=== PATIENT | female | born 1990 | race African-American/Black ===

== ENCOUNTER 2020-03-10 10:39 | Emergency (ER) | payer SELFPAY ==
[~2020-03-10] VITALS: Ht 162.6 cm; Wt 86.7 kg
[2020-03-10] MEDS ORDERED: IBUPROFEN 400 MG TAB PO ONE (11:15)
[2020-03-10] MEDS ORDERED: IBUPROFEN 400 MG TAB ONE (11:32)
[2020-03-10] MEDS ORDERED: ZITHROMAX250 MG PO (11:47)
[2020-03-10] MEDS ORDERED: DECADRON6 MG PO (11:50)
== END 2020-03-10 12:00 | disposition home or self-care (01) ==
LOC: FSED 11:19
DX: B34.9 Viral infection, unspecified (principal); J06.9 Acute upper respiratory infection, unspecified; R05 Cough
CPT/HCPCS: 83518; 87400; 99283

== ENCOUNTER 2020-03-25 10:30 | Emergency (ER) | payer SELFPAY ==
[~2020-03-25] VITALS: Ht 162.6 cm; Wt 86.8 kg
[~2020-03-25 10:30] MED LIST: DECADRON6 MG PO; ZITHROMAX250 MG PO
[2020-03-25] MEDS ORDERED: SODIUM CHLORIDE 0.9% 1000ML 1,000 ML IV STA (11:13)
[2020-03-25] MEDS ORDERED: KETOROLAC TROMETHAMINE 30 MG/ML VIAL IV STA (11:13)
[2020-03-25] MEDS ORDERED: SODIUM CHLORIDE FLUSH 10 ML SYR INJ PRN (11:15)
--- OUTSIDE RECORDS SUMMARY | 2020-03-25 11:41 | XMS REPORT | Clinical Summary ---
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 Name Role Phone Asked, No Pcp PCP Unavailable Allergies No Known Active Allergies Medications No known medications Active Problems Problem Noted Date 33 weeks gestation of 11/19/2017 Antepartum placental abruption 11/19/2017 distress affecting delivery 11/19/2017 11/17/2017 Surgical History Surgery Date Site/Laterality Comments OOPHORECTOMY SECTION OVARIAN CYST REMOVAL DELIVERY, 11/17/2017 Abdomen/Lower Procedure: DELIVERY, ; Surgeon: Collins Castaneda III, MD; Location: [facility] [place] [facility]; Service: Obstetrics; Laterality: Lower ; Family History Medical History Relation Name Comments Cancer Mother Relation Name Status Comments Mother Social History Date Tobacco Use Types Packs/Day Years Used Never Smoker Smokeless Tobacco: Never Used Drinks/Week oz/Week Comments Alcohol Use No Sex Assigned at Date Recorded Not on file Obstetrics History Term Pre Abrt (TAB) (SAB) (Ect) Mult Lvng Comments Grav Para 4 1 0 5 5 5 Date GA Total Labor Labor/2nd/3rd Weight Sex Delivery Anes PTL Brittny A1 A5 Name Clin Outcome 11/19/2007 F CS-LTranv Living Term Complications: None Delivery Location: Other 05/22/2009 F N Living Term Complications: None 08/15/2012 F CS-LTranv Living Term Complications: None 08/19/2014 F CS-LTranv Living Term Complications: None 11/17/2017 33w2d 0h 02m 0h 02m 4 lb 9.4 oz M CS-LTranv Spinal N Apurva ng 2 4 MAIKOL ARIZA Roderick Peter III, MD Complications: Placental abruption Delivery Location: [facility] ( [facility] [place] [facility] Last Filed Vital Signs Not on file Plan of Treatment Health Maintenance Due Date Last Done Comments CERVICAL CANCER SCREENING 2010 INFLUENZA VACCINE 12/08/2019 04/09/2014 Results Not on fileafter 03/25/2019 Advance Directives For more information, please contact: [phone] Patient [employer] Explanation Type Date Recorded Advance Directives, Living Will and Medical Power of [place] Advance Directives, 01/29/2019 6:10 PM Living Will and Medical Power of [place] Date Inactivated Comments Code Status Date Activated 11/19/2017 7:13 PM Full Code 11/16/2017 10:39 PM Code Status decision reached by: Patient
--- OUTSIDE RECORDS SUMMARY | 2020-03-25 11:42 | XMS REPORT | Continuity of Care Document ---
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 Name Role Phone [facility] Information Exchange Unavailable Un available Problems Problem Status Onset Date Classification Date Reported Comments Source Other specified disorders of teeth and s upporting structures 08/04/2016 08/07/2016 [facility] Dental caries 08/04/2016 08/07/2016 [facility] HEAD AND TOOTH PAIN Active 08/04/2016 [facility] Discharge Diagnosis: Abdominal pain 12/23/2015 12/26/2015 [facility] ABD PAIN Active 12/22/2015 [facility] Discharge Diagnosis: Bacterial vaginosis 05/14/2015 05/17/2015 [facility] ABDOMINAL PAIN Active 05/14/2015 [facility] Discharge Diagnosis: Abdominal pain of unknown etiolog y 11/20/2014 11/23/2014 [facility] Discharge Diagnosis: Ovarian cyst 11/20/2014 11/23/2014 [facility] Discharge Diagnosis: Menorrhagia 11/17/2014 11/21/2014 [facility] Discharge Diagnosis: Dyspnea 05/24/2014 05/26/2014 [facility] SOB Active 0 05/24/2014 [facility] Discharge Diagnosis: Nausea and vomiting in 01/16/2014 01/19/2014 [facility] Discharge Diagnosis: 01/16/2014 01/19/2014 [facility] VOMITTING Active 01/16/2014 [facility] HEADACHE Active 11/21/2013 [facility] FEVER Active 09/20/2011 [facility] VOMITTING,ABDOMINAL PAIN Active 09/12/2011 [facility] Contraception (finding) Active Problem 08/26/2019 [facility] Cyst of ovary (disorder) Resol beau Problem [facility] Active Problem 11/28/2018 [facility] Pain (finding) Active Problem 11/28/2018 [facility] Nausea Active Problem 09/16/2011 [facility] Pain Active Problem 09/16/2011 [facility] Medications Medication Details Route Status Patient Instructions Ordering Provider Order Date Source Depo-Provera 150 mg, Route: IM , Drug form: SUSP, ONCE, Dosing Weight 73.636, kg, Start date: 07/11/18 10:46:00 HEEL CUTTER, Stop date: 07/11/18 10:46:00 HEEL CUTTER Inactive 07/11/2018 [facility] Acetaminophen 300 MG / Codeine Phosphate 30 MG Oral Tablet [Tylenol with Codeine #3] 1 - 2 tab, PO, Q6H, PRN Pain, X 4 day, # 32 tab, 0 Refill(s) Active 08/04/2016 [facility] Penicillin V Potassium 500 MG Oral Tablet 500 mg = 1 tab, PO, Q6H, X 10 day, # 40 tab, 0 Refill(s) Active 08/04/2016 [facility] lactulose 10 g oral powder = 1 Pack, PO, BID, X 5 day, # 10 gm, 0 Refill(s) Active 12/23/2015 [facility] Lactulose 30 ml, Route: PO, Dr ug Form: SYRP, Dosing Weight 75, kg, ONCE, STAT, Start date: 12/23/15 3:12:00 CDT, Stop date: 12/23/15 3:12:00 CDT Inactive 12/23/2015 [facility] Ondansetron 4 mg, Route: IVP, ONCE, Dosing Weight 75, kg, Priority: STAT, Start date: 12/23/15 0:44:00 CDT, Stop date: 12/23/15 0:44:00 CDT Inactive 12/23/2015 [facility] Saline Flush 0.9% Notes: (Same as: BD Posiflush) Inactive 12/23/2015 [facility] GI cocktail 30 mL, Route: PO, Dosing Weight 75, kg, ONCE, STAT, Start date: 12/23/15 0:44:00 CDT, Stop date: 12/23/15 0:44:00 CDT Inactive 12/23/2015 [facility] Metronidazole 500 MG Oral Tablet [Flagyl] 500 mg = 1 tab, PO, Q8H, X 14 day, # 42 tab, 0 Refill(s) Active 05/14/2015 [facility] Ketorolac 30 mg, Route: IVP, D rug form: INJ, ONCE, Dosing Weight 72.273, kg, Priority: STAT, Start date: 05/14/15 8:32:00, Stop date: 05/14/15 8:32:00 Inactiv e 05/14/2015 [facility] Sodium Chloride 0.154 MEQ/ML Injectable Solution 1,000 mL, 1,000 ml/hr, Infuse Over: 1 hr, Route: IV, ONCE, Priority: STAT, Dosing Weight 72.273 kg, Start date: 05/14/15 8:30:00, Duration: 1 doses or times, Stop date: 05/14/15 8:30:00 Inactive 05/14/2015 [facility] Ketorolac Tromethamine 10 MG Oral Tablet 10 mg = 1 tab, PO, TID, PRN Pain, X 5 day, # 15 tab, 0 Refill(s) Active 11/20/2014 [facility] Acetaminophen Notes: Max aceta minophen 4000 mg/day (4 gm/day). (Same as: Tylenol Extra Strength) Inactive 11/20/2014 [facility] Acetaminophen Notes: Do not ex ceed 4 gm/day. (Same as: Tylenol) Inactive 11/18/2014 [facility] Saline Flush 0.9% Notes: (Same as: BD Posiflush) No Longer Active 11/18/2014 [facility] PreNata oral tablet, chewable 0 Refill(s) Active 05/24/2014 [facility] Saline Flush 0.9% Notes: Same as: BD Posiflush Sterile Inactive 05/24/2014 [facility] Ondansetron 4 MG Disintegrating Tablet [Zofran] Special Instructions: Dissolve tab under tongue Active 01/16/2014 [facility] Zofran Notes: (Same as: Zofran) Inactive 01/16/2014 [facility] Sodium Chloride 0.154 MEQ/ML Injectable Solution 1,000 mL, 1,000 ml/hr, Infuse Over: 1 hr, Route: IV, 1,000, Drug form: INJ, ONCE, Priority: STAT, Dosing Weight 75 kg, Start date: 01/16/14 16:30:00, Duration: 1 doses or times, Stop date: 01/16/14 16:30:00 Inactive 01/16/2014 [facility] ferrous sulfate 325 mg oral enteric coated tablet 325 mg, 1 tab, PO, Daily, 30 tab, Substitution Allowed, ECTAB PO Active [place] 09/14/2011 [facility] ibuprofen 600 mg oral tablet 6 00 mg, 1 tab, PO, QID, PRN, 30 tab, Pain, Substitution Allowed, TAB PO Active [facility] 09/14/2011 [facility] nter Gilmer 5/325 oral tablet 1 tab, PO, Q6H, PRN, 20 tab, Pain, Substitution Allowed, Maintenance, TAB PO Active [facility] 09/14/2011 [facility] docusate sodium 100 mg oral capsule 100 mg, 1 cap, PO, BID, PRN, 30 cap, Constipation, Substitution Allowed, CAP PO Active [place] 09/14/2011 [facility] Saline Flush 0.9% 5 ml, Route: IVP, Drug Form: INJ, Q12H, Start date: 09/13/11 21:00:00, Duration: 30 day, Stop date: 10/13/11 9:00:00 IVP No Longer Active [facility] 09/14/2011 [facility] Colace 100 mg oral capsule 100 mg, 1 cap, Route: PO, BID, Start date: 09/13/11 17:00:00, Duration: 30 day, Stop date: 10/13/11 9:00:00 PO No Longer Active [facility] 09/13/2011 [facility] ibuprofen 600 mg, 1 tab, Route : PO, Drug form: TAB, QID, PRN Pain, Start date: 09/13/11 15:34:00, Duration: 30 day, Stop date: 10/13/11 15:33:00 PO No Longer Active [place] 09/13/2011 [facility] Phenergan 25 mg, 1 tab, Route: PO, Drug form: TAB, Q6H, PRN Nausea & Vomiting, Start date: 09/13/11 11:57:00, Duration: 30 day, Stop date: 10/13/11 11:56:00 PO No Longer Active [facility] 09/13/2011 [facility] Zofran 4 mg, 1 tab, Route: PO, Drug form: TAB, Q8H, PRN Nausea, Start date: 09/13/11 11:57:00, Duration: 30 day, Stop date: 10/13/11 11:56:00 PO No Longer Active [facility] 09/13/2011 [facility] Saline Flush 0.9% 5 ml, Route: IVP, Drug Form: INJ, PRN, PRN Line Flush, Start date: 09/13/11 11:56:00, Duration: 30 day, Stop date: 10/13/11 11:55:00 IVP No Longer Active [facility] 09/13/2011 [facility] Mylicon 160 mg, Route: PO, Raphael g form: CHEWTAB, Q6H, PRN Gas, Start date: 09/13/11 11:54:00, Duration: 30 day, Stop date: 10/13/11 11:53:00 PO No Longer Active [facility] 09/13/2011 [facility] Gilmer 5/325 oral tablet 2 tab, Route: PO, Drug Form: TAB, Q6H, PRN Pain, Start date: 09/13/11 11:54:00, Duration: 30 day, Stop date: 10/13/11 11:53:00 PO No Longer Active [facility] 09/13/2011 [facility] Motrin 300 mg, 1.5 tab, Route: PO, Drug form: TAB, Q6H, PRN Pain, Start date: 09/13/11 11:53:00, Duration: 30 day, Stop date: 10/13/11 11:52:00 PO No Longer Active Berenice 09/13/2011 [facility] Mylicon 160 mg, 2 tab, Route: PO, Drug form: CHEWTAB, Q6H, PRN Gas, Start date: 09/13/11 6:48:00, Duration: 30 day, Stop date: 10/13/11 6:47:00 PO No Longer Active [facility] 09/13/2011 [facility] morphine 1 mg/ml MEDICAL ADMINISTRATIVE SPECIALIST (30 mg/30 mL) INJ Syringe 30 mg 30 mg, 30 mL, Route: IV, MEDICAL ADMINISTRATIVE SPECIALIST Dose: 1 mg, MEDICAL ADMINISTRATIVE SPECIALIST Lockout: 10 minutes, Continuous Basal Rate: 0.5 mg, 4 Hour Limit (In MG): 32, Drug Form: INJ, Continuous, Start date: 09/12/11 20:30:00, Duration: 30 day, Stop date: 10/12/11 20:29:00 IV No Longer Active [facility] 09/13/2011 [facility] naloxone 0.4 mg, 1 mL, Route: IV, Drug form: INJ, PRN, PRN Narcotic Reversal, Start date: 09/12/11 20:17:00, Duration: 30 day, Stop date: 10/12/11 20:16:00 IV No Longer Active [facility] 09/13/2011 [facility] nt ondansetron 4 mg, 2 mL, Route: IVP, Drug form: INJ, Q6H, PRN Nausea & Vomiting, Start date: 09/12/11 19:42:00, Duration: 30 day, Stop date: 10/12/11 19:41:00 IVP No Longer Active [facility] 09/13/2011 [facility] zolpidem 5 mg, 1 tab, Route: P O, Drug form: TAB, Bedtime, PRN Insomnia, Start date: 09/12/11 19:42:00, Duration: 30 day, Stop date: 10/12/11 19:41:00 PO No Longer Active [place] 09/13/2011 [facility] nt promethazine 12.5 mg, 0.5 mL, Route: IM, Drug form: INJ, Q4H, PRN Nausea & Vomiting, Start date: 09/12/11 19:42:00, Duration: 30 day, Stop date: 10/12/11 19:41:00 IM No Longer Active [facility] 09/13/2011 [facility] nter diphenhydrAMINE 25 mg, 1 cap, Route: PO, Drug form: CAP, Bedtime, PRN Insomnia, Start date: 09/12/11 19:42:00, Duration: 30 day, Stop date: 10/12/11 19:41:00 PO No Longer Active [place] 09/13/2011 [facility] nter docusate 100 mg, 1 cap, Route: PO, Drug form: CAP, BID, PRN Constipation, Start date: 09/12/11 19:42:00, Duration: 30 day, Stop date: 10/12/11 19:41:00 PO No Longer Active [place] 09/13/2011 [facility] nter Saline Flush 0.9% 5 ml, Route: IVP, Drug Form: INJ, PRN, PRN Line Flush, Start date: 09/12/11 19:42:00, Duration: 30 day, Stop date: 10/12/11 19:41:00 IVP No Longer Active [place] 09/13/2011 [facility] nter flumazenil 0.2 mg, 2 mL, Route : IVP, Drug form: INJ, PRN, PRN Benzodiazepine Reversal, Initial dose, Start date: 09/12/11 18:47:00, Duration: 30 day, Stop date: 10/12/11 18:46:00 IVP No Longer Active [facility] 09/12/2011 [facility] naloxone 0.04 mg, 0.1 mL, Rout e: IVP, Drug form: INJ, Q2MIN, PRN Narcotic Reversal, Start date: 09/12/11 18:47:00, Duration: 8 doses or times, Stop date: Limited # of times IVP No Longer Active [facility] 09/12/2011 [facility] ondansetron 4 mg, 2 mL, Route: IVP, Drug form: INJ, ONCE, PRN Nausea & Vomiting, Start date: 09/12/11 18:47:00 IVP No Longer Active [facility] 09/12/2011 [facility] morphine Sulfate 2 mg, 0.5 mL, Route: IVP, Drug form: INJ, Q5Min, PRN Pain Score 4-6, Start date: 09/12/11 18:47:00, Duration: 8 doses or times, Stop date: Limited # of times IVP No Longer Active [facility] 09/12/2011 [facility] cefazolin 1 gm, Route: IVPB, D rug form: PDR/INJ, ONCALL, Start date: 09/12/11 16:00:00, Duration: 30 day, Stop date: 10/12/11 15:59:00 IVPB No Longer Active Berenice 10/2011 [facility] Dilaudid 1 mg, Route: IV, ONCE , Priority: STAT, Start date: 09/12/11 11:56:00, Stop date: 09/12/11 11:56:00 IV No Longer Active [place] 09/12/2011 [facility] Sodium Chloride 0.9% (Bolus) IV 1,000 mL 1,000 mL, Rate: 1,000 ml/hr, Infuse over: 1 hr, Route: IV, Total Volume: 1,000, Bolus Dose, Priority: STAT, Start date: 09/12/11 8:26:00, Duration: 1 doses or times, Stop date: 09/12/11 9:25:00 IV No Longer Active [place]ie 09/12/2011 [facility] nter morphine Sulfate 6 mg, Route: IVP, ONCE, Priority: STAT, Start date: 09/12/11 7:39:00, Stop date: 09/12/11 7:39:00 IVP No Longer Active [place]ie 09/12/2011 [facility] ondansetron 4 mg, Route: IVP, Drug form: INJ, ONCE, Priority: STAT, Start date: 09/12/11 7:11:00, Stop date: 09/12/11 7:11:00 IVP No [facility] morphine Sulfate 4 mg, Route: IVP, ONCE, Priority: STAT, Start date: 09/12/11 7:11:00, Stop date: 09/12/11 7:11:00 IVP No Longer Active [facility] 09/12/2011 [facility] Sodium Chloride 0.9% IV 1,000 mL 1,000 mL, Rate: 125 ml/hr, Infuse over: 8 hr, Route: IV, Dosing Weight 68.2 kg, Total Volume: 1,000, Start date: 09/12/11 7:10:00, Duration: 30 day, Stop date: 10/12/11 7:09:00 IV No Longer [facility] Allergies, Adverse Reactions, Alerts Substance Category Reaction Severity Reaction type Status Date Reported Comments Source No Known Medication Allergies Assertion Drug aller [facility] Immunizations No Data Provided for This Section Results Order Name Results Value Reference Range Date Interpretation Comments Source URINE AND STOOL UA Nitrite Negative (12/23/15 1:25 AM) Negative 12/23/2015 [facility] URINE AND STOOL UA Leuk Est Negative (12/23/15 1:25 AM) Negative 12/23/2015 [facility] URINE AND STOOL UA Sq Epi Few /LPF Few /LPF 12/23/2015 [facility] URINE AND STOOL UA Blood Trace *ABN* (12/23/15 1:25 AM) Negative 12/23/2015 [facility] URINE AND STOOL UA Urobilinogen 0.2 0.1 - 1.0 12/23/2015 [facility] URINE AND STOOL UA Mucus Few /LPF None Seen /LPF 12/23/2015 [place] URINE AND STOOL UA WBC 0-2 /HPF None Seen /HPF 12/23/2015 [place] [facility] URINE AND STOOL UA RBC 3-5 /HPF 0 - 2 12/23/2015 [place] [facility] URINE AND STOOL UA Bacteria Few /HPF None Seen /HPF 12/23/2015 [place] [facility] URINE AND STOOL UA pH 6.0 5.0 - 8.0 12/23/2015 [place] [facility] URINE AND STOOL UA Protein Negative (12/23/15 1:25 AM) Negative 12/23/2015 [place] URINE AND STOOL UA Glucose Negative (12/23/15 1:25 AM) Negative 12/23/2015 [facility] URINE AND STOOL UA Ketones Negative *NA* (12/23/15 1:25 AM) Negative 12/23/2015 [facility] URINE AND STOOL UA Bili Negative *NA* (12/23/15 1:25 AM) Negative 12/23/2015 [facility] URINE AND STOOL UA Turbidity Clear (12/23/15 1:25 AM) Clear 12/23/2015 [facility] URINE AND STOOL UA Color Yellow *NA* (12/23/15 1:25 AM) Yellow 12/23/2015 [facility] URINE AND STOOL UA Spec Grav 1.025 <=1.030 12/23/2015 [facility] URINE CHEM U Preg Negat hussain (12/23/15 1:25 AM) Negative 12/23/2015 [facility] CHEM PANEL Lipase Lvl 199 73 - 393 12/23/2015 [facility] CHEM PANEL A/G Ratio 0.9 0.7 - 1.6 12/23/2015 [facility] CHEM PANEL Globulin 4.3 2.7 - 4.2 12/23/2015 [facility] CHEM PANEL AGAP 10.9 10.0 - 20.0 12/23/2015 [facility] CHEM PANEL B/C Ratio 14 6 - 25 12/23/2015 [facility] CHEM PANEL eGFR 133 12/23/2015 Result Comment: The eGFR is calculated using the CKD-EPI formula. In most young, healthy individuals the eGFR will be >90 mL/min/1.73m2. The eGFR declines with age. An eGFR of 60-89 may be normal in some populations, particularly the elderly, for whom the CKD-EPI formula has not been extensively validated. Use of the eGFR is not recommended in the following populations:

Individuals with unstable creatinine concentrations, including patients and those with serious co-morbid conditions.

Patients with extremes in muscle mass or diet.

The data above are obtained from the National Kidney Disease Education Program (NKDEP) which additionally recommends that when the eGFR is used in patients with extremes of body mass index for purposes of drug dosing, the eGFR should be multiplied by the estimated BMI. [facility] ALANINE AMINOTRANSFERASE 19 0 - 65 12/23/2015 [facility] Total Protein 8.0 6.4 - 8.4 12/23/2015 [facility] Potassium Lvl 3.9 3.5 - 5.1 12/23/2015 [facility] Chloride Lvl 109 95 - 109 12/23/2015 [place] CHEM PANEL CO2 26 24 - 32 12/23/2015 [facility] Creatinine Lvl 0.72 0.50 - 1.40 12/23/2015 [place] [facility] CHEM PANEL Sodium Lvl 142 135 - 145 12/23/2015 [place] [facility] CHEM PANEL BUN 10 7 - 22 12/23/2015 [facility] Alk Phos 74 39 - 136 12/23/2015 [facility] Glucose Lvl 90 70 - 99 12/23/2015 [facility] Albumin Lvl 3.7 3.5 - 5.0 12/23/2015 [facility] ASPARTATE TRANSAMINASE 15 0 - 37 12/23/2015 [facility] Calcium Lvl 8.9 8.5 - 10.5 12/23/2015 [facility] Bili Total 0.3 0.2 - 1.3 12/23/2015 [facility] HEMATOLOGY Eosinophils 1.5 0.0 - 4.0 12/23/2015 [facility] HEMATOLOGY Monocytes 10.1 2.0 - 12.0 12/23/2015 [facility] HEMATOLOGY Lymphocytes 38.1 20.0 - 40.0 12/23/2015 [facility] HEMATOLOGY Segs 49.7 45.0 - 75.0 12/23/2015 [facility] HEMATOLOGY Eosinophils # 0.1 0.0 - 0.5 12/23/2015 [facility] HEMATOLOGY Monocytes # 0.5 0.0 - 0.8 12/23/2015 [facility] HEMATOLOGY Lymphocytes # 1.7 1.0 - 5.5 12/23/2015 [facility] Segs-Bands # 2.2 1.5 - 8.1 12/23/2015 [facility] Basophils 0.6 0.0 - 1.0 12/23/2015 [facility] MPV 9.6 7.4 - 10.4 12/23/2015 [facility] Platelet 157 133 - 450 12/23/2015 [facility] RDW 13.6 11.5 - 14.5 12/23/2015 [facility] MCHC 32.6 32.0 - 36.0 12/23/2015 [facility] MCH 27.6 27.0 - 31.0 12/23/2015 [facility] MCV 84.7 80.0 - 98.0 12/23/2015 [facility] Hct 37.7 36.0 - 48.0 12/23/2015 [facility] Hgb 12.3 12.0 - 16.0 12/23/2015 [facility] RBC X 10x6 4.45 4.20 - 5.40 12/23/2015 [facility] WBC X 10x3 4.5 3.7 - 10.4 12/23/2015 [facility] MOLECULAR DIAGNOSTIC N gonorrhea by Amp Det (APTIMA) Negative *NA* (05/14/15 10:58 AM) Negative 05/14/2015 [facility] MOLECULAR DIAGNOSTIC Source APTIMA Endocervix *NA* (05/14/15 10:58 AM) 05/14/2015 [facility] ELECTROLYTES AGAP 9.5 10.0 - 20.0 05/14/2015 [facility] ELECTROLYTES eGFR 139 05/14/2015 Result Comment: The eGFR is calculated using the CKD-EPI formula. In most young, healthy individuals the eGFR will be >90 mL/min/1.73m2. The eGFR declines with age. An eGFR of 60-89 may be normal in some populations, particularly the elderly, for whom the CKD-EPI formula has not been extensively validated. Use of the eGFR is not recommended in the following populations:

Individuals with unstable creatinine concentrations, including patients and those with serious co-morbid conditions.

Patients with extremes in muscle mass or diet.

The data above are obtained from the National Kidney Disease Education Program (NKDEP) which additionally recommends that when the eGFR is used in patients with extremes of body mass index for purposes of drug dosing, the eGFR should be multiplied by the estimated BMI. [facility] ELECTROLYTES CO2 27 24 - 32 05/14/2015 [facility] ELECTROLYTES Calcium Lvl 9.0 8.5 - 10.5 05/14/2015 [facility] ELECTROLYTES BUN 9 7 - 22 05/14/2015 [facility] ELECTROLYTES Glucose Lvl 88 70 - 99 05/14/2015 [facility] ELECTROLYTES Creatinine Lvl 0.7 0 0.50 - 1.40 05/14/2015 [facility] ELECTROLYTES Potassium Lvl 4.5 3.5 - 5.1 05/14/2015 [facility] ELECTROLYTES Sodium Lvl 139 135 - 145 05/14/2015 [facility] ELECTROLYTES Chloride Lvl 107 95 - 109 05/14/2015 [facility] HEMATOLOGY MCH 27.8 27.0 - 31.0 05/14/2015 [facility] MCV 86.1 80.0 - 98.0 05/14/2015 [facility] Hct 38.3 36.0 - 48.0 05/14/2015 [facility] MCHC 32.3 32.0 - 36.0 05/14/2015 [facility] RDW 13.4 11.5 - 14.5 05/14/2015 [facility] MPV 9.4 7.4 - 10.4 05/14/2015 [facility] Platelet 145 133 - 450 05/14/2015 [facility] RBC 4.45 4.20 - 5.40 05/14/2015 [facility] WBC 4.6 3.7 - 10.4 05/14/2015 [facility] Hgb 12.4 12.0 - 16.0 05/14/2015 [facility] Monocytes # 0.4 0.0 - 0.8 05/14/2015 [facility] Eosinophils # 0.1 0.0 - 0.5 05/14/2015 [facility] Segs 56.0 45.0 - 75.0 05/14/2015 [facility] Lymphocytes 33.6 20.0 - 40.0 05/14/2015 [facility] Monocytes 8.6 2.0 - 12.0 05/14/2015 [facility] HEMATOLOGY Eosinophils 1.1 0.0 - 4.0 05/14/2015 [facility] HEMATOLOGY Segs-Bands # 2.6 1.5 - 8.1 05/14/2015 [facility] HEMATOLOGY Basophils 0.7 0.0 - 1.0 05/14/2015 [facility] HEMATOLOGY Lymphocytes # 1.6 1.0 - 5.5 05/14/2015 [facility] URINE AND STOOL UA Bacteria Occasional /HPF None Seen /HPF 05/14/2015 [facility] URINE AND STOOL UA RBC None Seen (05/14/15 8:45 AM) 0 - 2 05/14/2015 [facility] URINE AND STOOL UA WBC None Seen (05/14/15 8:45 AM) None Seen 05/14/2015 [facility] URINE AND STOOL UA Sq Epi Few /LPF Few /LPF 05/14/2015 [facility] URINE AND STOOL UA Leuk Est Negative (05/14/15 8:45 AM) Negative 05/14/2015 [facility] URINE AND STOOL UA Color Yellow *NA* (05/14/15 8:45 AM) Yellow 05/14/2015 [facility] URINE AND STOOL UA Turbidity Clear (05/14/15 8:45 AM) Clear 05/14/2015 [facility] URINE AND STOOL UA Bili Negative *NA* (05/14/15 8:45 AM) Negative 05/14/2015 [facility] URINE AND STOOL UA Blood Negative (05/14/15 8:45 AM) Negative 05/14/2015 [facility] URINE AND STOOL UA Spec Grav 1.020 <=1.030 05/14/2015 [facility] URINE AND STOOL UA Nitrite Negative (05/14/15 8:45 AM) Negative 05/14/2015 [facility] URINE AND STOOL UA Urobilinogen 0.2 0.1 - 1.0 05/14/2015 [facility] URINE AND STOOL UA Protein Negative mg/dL Negative mg/dL 05/14/2015 [facility] URINE AND STOOL UA Glucose Negative mg/dL Negative mg/dL 05/14/2015 [facility] URINE AND STOOL UA pH 7.0 5.0 - 8.0 05/14/2015 [facility] URINE AND STOOL UA Ketones Negative mg/dL Negative mg/dL 05/14/2015 [facility] URINE CHEM U Preg Negat hussain (05/14/15 8:45 AM) Negative 05/14/2015 [facility] ELECTROLYTES AGAP 9.0 10.0 - 20.0 11/20/2014 [facility] ELECTROLYTES eGFR 129 11/20/2014 Result Comment: The eGFR is calculated using the CKD-EPI formula. In most young, healthy individuals the eGFR will be >90 mL/min/1.73m2. The eGFR declines with age. An eGFR of 60-89 may be normal in some populations, particularly the elderly, for whom the CKD-EPI formula has not been extensively validated. Use of the eGFR is not recommended in the following populations:

Individuals with unstable creatinine concentrations, including patients and those with serious co-morbid conditions.

Patients with extremes in muscle mass or diet.

The data above are obtained from the National Kidney Disease Education Program (NKDEP) which additionally recommends that when the eGFR is used in patients with extremes of body mass index for purposes of drug dosing, the eGFR should be multiplied by the estimated BMI. [facility] ELECTROLYTES CO2 26 24 - 32 11/20/2014 [facility] ELECTROLYTES Calcium Lvl 8.8 8.5 - 10.5 11/20/2014 [facility] ELECTROLYTES Potassium Lvl 4.0 3.5 - 5.1 11/20/2014 [facility] ELECTROLYTES Chloride Lvl 111 95 - 109 11/20/2014 [facility] ELECTROLYTES BUN 4 7 - 22 11/20/2014 [facility] ELECTROLYTES Creatinine Lvl 0.8 0.5 - 1.4 11/20/2014 [facility] ELECTROLYTES Sodium Lvl 142 135 - 145 11/20/2014 [facility] ELECTROLYTES Glucose Lvl 92 70 - 99 11/20/2014 [facility] HEMATOLOGY MPV 9.3 7.4 - 10.4 11/20/2014 [facility] HEMATOLOGY Platelet 137 133 - 450 11/20/2014 [facility] MCH 25.7 27.0 - 31.0 11/20/2014 [facility] HEMATOLOGY MCV 82.0 80.0 - 98.0 11/20/2014 [facility] MCHC 31.3 32.0 - 36.0 11/20/2014 [facility] HEMATOLOGY RDW 16.7 11.5 - 14.5 11/20/2014 [facility] WBC 4.0 3.7 - 10.4 11/20/2014 [facility] RBC 4.27 4.20 - 5.40 11/20/2014 [facility] HEMATOLOGY Hct 35.0 36.0 - 48.0 11/20/2014 [facility] HEMATOLOGY Hgb 11.0 12.0 - 16.0 11/20/2014 [facility] HEMATOLOGY Segs-Bands # 1.9 1.5 - 8.1 11/20/2014 [facility] HEMATOLOGY Lymphocytes # 1.7 1.0 - 5.5 11/20/2014 [facility] HEMATOLOGY Monocytes # 0.3 0.0 - 0.8 11/20/2014 [facility] HEMATOLOGY Eosinophils # 0.1 0.0 - 0.5 11/20/2014 [facility] HEMATOLOGY Basophils 0.6 0.0 - 1.0 11/20/2014 [facility] HEMATOLOGY Segs 47.0 45.0 - 75.0 11/20/2014 [facility] HEMATOLOGY Lymphocytes 42.5 20.0 - 40.0 11/20/2014 [facility] HEMATOLOGY Eosinophils 1.4 0.0 - 4.0 11/20/2014 [facility] HEMATOLOGY Monocytes 8.5 2.0 - 12.0 11/20/2014 [facility] URINE AND STOOL UA Mucus Few /LPF None Seen /LPF 11/20/2014 [facility] URINE AND STOOL UA Sq Epi Few /LPF Few /LPF 11/20/2014 [facility] URINE AND STOOL UA Bacteria Few /HPF None Seen /HPF 11/20/2014 [facility] URINE AND STOOL UA RBC 3-5 /HPF 0 - 2 11/20/2014 [facility] URINE AND STOOL UA WBC 0-2 /HPF None Seen /HPF 11/20/2014 [facility] URINE AND STOOL UA Leuk Est Negative (11/20/14 11:25 AM) Negative 11/20/2014 [facility] URINE AND STOOL UA Nitrite Negative (11/20/14 11:25 AM) Negative 11/20/2014 [facility] URINE AND STOOL UA Urobilinogen 0.2 0.1 - 1.0 11/20/2014 [facility] URINE AND STOOL UA Blood Large *ABN* (11/20/14 11:25 AM) Negative 11/20/2014 [facility] URINE AND STOOL UA Bili Negative *NA* (11/20/14 11:25 AM) Negative 11/20/2014 [facility] URINE AND STOOL UA Ketones Negative *NA* (11/20/14 11:25 AM) Negative 11/20/2014 [facility] URINE AND STOOL UA Color Yellow *NA* (11/20/14 11:25 AM) Yellow 11/20/2014 [facility] URINE AND STOOL UA Spec Grav 1.010 <=1.030 11/20/2014 [facility] URINE AND STOOL UA Turbidity Clear (11/20/14 11:25 AM) Clear 11/20/2014 [facility] URINE AND STOOL UA pH 8.5 5.0 - 8.0 11/20/2014 [facility] URINE AND STOOL UA Glucose Negative (11/20/14 11:25 AM) Negative 11/20/2014 [facility] URINE AND STOOL UA Protein 30 mg/dL Negative mg/dL 11/20/2014 [facility] URINE CHEM U Preg Negat hussain (11/20/14 11:25 AM) Negative 11/20/2014 [facility] MOLECULAR DIAGNOSTIC N gonorrhea by Amp Det (APTIMA) Negative *NA* (11/17/14 11:45 PM) Negative 11/18/2014 [facility] MOLECULAR DIAGNOSTIC Source APTIMA Endocervix *NA* (11/17/14 11:45 PM) 11/18/2014 [facility] MOLECULAR DIAGNOSTIC C trachomatis b y Amp Det (APTIMA) Negative *NA* (11/17/14 11:45 PM) Negative 11/18/2014 [facility] MOLECULAR DIAGNOSTIC Source APTIMA Endocervix *NA* (11/17/14 11:45 PM) 11/18/2014 [facility] Platelet 148 133 - 450 11/18/2014 [facility] MPV 8.7 7.4 - 10.4 11/18/2014 [facility] MCV 81.1 80.0 - 98.0 11/18/2014 [facility] Hct 34.6 36.0 - 48.0 11/18/2014 [facility] Hgb 11.1 12.0 - 16.0 11/18/2014 [facility] RBC 4.26 4.20 - 5.40 11/18/2014 [facility] RDW 17.2 11.5 - 14.5 11/18/2014 [facility] MCH 25.9 27.0 - 31.0 11/18/2014 [facility] MCHC 32.0 32.0 - 36.0 11/18/2014 [facility] WBC 6.4 3.7 - 10.4 11/18/2014 [facility] Eosinophils # 0.1 0.0 - 0.5 11/18/2014 [facility] Segs 47.9 45.0 - 75.0 11/18/2014 [facility] HEMATOLOGY Lymphocytes 42.4 20.0 - 40.0 11/18/2014 [facility] HEMATOLOGY Segs-Bands # 3.1 1.5 - 8.1 11/18/2014 [facility] HEMATOLOGY Lymphocytes # 2.7 1.0 - 5.5 11/18/2014 [facility] HEMATOLOGY Basophils 0.5 0.0 - 1.0 11/18/2014 [facility] HEMATOLOGY Monocytes # 0.5 0.0 - 0.8 11/18/2014 [facility] HEMATOLOGY Monocytes 8.3 2.0 - 12.0 11/18/2014 [facility] HEMATOLOGY Eosinophils 0.9 0.0 - 4.0 11/18/2014 [facility] URINE AND STOOL UA Protein 30 mg/dL Negative mg/dL 11/18/2014 [facility] URINE AND STOOL UA pH 6.0 5.0 - 8.0 11/18/2014 [facility] URINE AND STOOL UA Nitrite Negative (11/17/14 10:57 PM) Negative 11/18/2014 [facility] URINE AND STOOL UA Leuk Est Negative (11/17/14 10:57 PM) Negative 11/18/2014 [facility] URINE AND STOOL UA Urobilinogen 2.0 0.1 - 1.0 11/18/2014 [facility] URINE AND STOOL UA Blood Large *ABN* (11/17/14 10:57 PM) Negative 11/18/2014 [facility] URINE AND STOOL UA Bili Negative *NA* (11/17/14 10:57 PM) Negative 11/18/2014 [facility] URINE AND STOOL UA Ketones Trace *ABN* (11/17/14 10:57 PM) Negative 11/18/2014 [facility] URINE AND STOOL UA Glucose Negative (11/17/14 10:57 PM) Negative 11/18/2014 [facility] URINE AND STOOL UA Color Yellow *NA* (11/17/14 10:57 PM) Yellow 11/18/2014 [facility] URINE AND STOOL UA Spec Grav 1.020 <=1.030 11/18/2014 [facility] URINE AND STOOL UA Turbidity Slight Cloudy (11/17/14 10:57 PM) Clear 11/18/2014 [facility] URINE AND STOOL UA Sq Epi Few /LPF Few /LPF 11/18/2014 [facility] URINE AND STOOL UA WBC 3-5 /HPF None Seen /HPF 11/18/2014 [facility] URINE AND STOOL UA RBC >100 /HPF 0 - 2 11/18/2014 [facility] URINE AND STOOL UA Bacteria Few /HPF None Seen /HPF 11/18/2014 [facility] URINE CHEM U Preg Negat hussain (11/17/14 10:57 PM) Negative 11/18/2014 [facility] URINE AND STOOL UA Bacteria Few /HPF None Seen /HPF 05/24/2014 [facility] URINE AND STOOL UA RBC 0-2 /HPF 0 - 2 05/24/2014 [facility] URINE AND STOOL UA Mucus Few /LPF None Seen /LPF 05/24/2014 [facility] URINE AND STOOL UA Glucose Negative (05/24/14 8:49 AM) Negative 05/24/2014 [facility] URINE AND STOOL UA Ketones Negative *NA* (05/24/14 8:49 AM) Negative 05/24/2014 [facility] URINE AND STOOL UA Bili Negative *NA* (05/24/14 8:49 AM) Negative 05/24/2014 [facility] URINE AND STOOL UA Sq Epi Moderate /LPF Few /LPF 05/24/2014 [facility] URINE AND STOOL UA Leuk Est Small *ABN* (05/24/14 8:49 AM) Negative 05/24/2014 [facility] URINE AND STOOL UA Protein Negative (05/24/14 8:49 AM) Negative 05/24/2014 [facility] URINE AND STOOL UA pH 6.5 5.0 - 8.0 05/24/2014 [facility] URINE AND STOOL UA Blood Negative (05/24/14 8:49 AM) Negative 05/24/2014 [facility] URINE AND STOOL UA WBC 3-5 /HPF None Seen /HPF 05/24/2014 [facility] URINE AND STOOL UA Nitrite Negative (05/24/14 8:49 AM) Negative 05/24/2014 [facility] URINE AND STOOL UA Urobilinogen 2.0 0.1 - 1.0 05/24/2014 [facility] URINE AND STOOL UA Spec Grav 1.020 <=1.030 05/24/2014 [facility] URINE AND STOOL UA Color Yellow *NA* (05/24/14 8:49 AM) Yellow 05/24/2014 [facility] URINE AND STOOL UA Turbidity Clear (05/24/14 8:49 AM) Clear 05/24/2014 [facility] CARDIAC ENZYMES CK MB Index <1.4 0.0 - 2.5 05/24/2014 [facility] CARDIAC ENZYMES Troponin-I <0.02 0.00 - 0.40 05/24/2014 [facility] CARDIAC ENZYMES Total CK 36 12 - 191 05/24/2014 [facility] CARDIAC ENZYMES CK MB <0.5 0.5 - 3.6 05/24/2014 [facility] CHEM PANEL eGFR 153 05/24/2014 <sup>1</sup>Result Comment: The eGFR is calculated using the CKD-EPI formula. In most young, healthy individuals the eGFR will be >90 mL/min/1.73m2. The eGFR declines with age. An eGFR of 60-89 may be normal in some populations, particularly the elderly, for whom the CKD-EPI formula has not been extensively validated. Use of the eGFR is not recommended in the following populations:& lt;br/>
Individuals with unstable creatinine concentrations, including patients and those with serious co-morbid conditions.

Patients with extremes in muscle mass or diet.

The data above are obtained from the National Kidney Disease Education Program (NKDEP) which additionally recommends that when the eGFR is used in patients with extremes of body mass index for purposes of drug dosing, the eGFR should be multiplied by the estimated BMI. [facility] CHEM PANEL AGAP 12.3 10.0 - 20.0 05/24/2014 [facility] CHEM PANEL B/C Ratio 8 6 - 25 05/24/2014 [facility] CHEM PANEL Bili Total 0.4 0.2 - 1.3 05/24/2014 [facility] CHEM PANEL Total Protein 6.7 6.4 - 8.4 05/24/2014 [facility] CHEM PANEL AST 11 0 - 37 05/24/2014 [facility] CHEM PANEL Chloride Lvl 106 95 - 109 05/24/2014 [facility] CHEM PANEL Calcium Lvl 8.8 8.5 - 10.5 05/24/2014 [facility] CHEM PANEL CO2 22 24 - 32 05/24/2014 [facility] CHEM PANEL Potassium Lvl 3.3 3.5 - 5.1 05/24/2014 [facility] CHEM PANEL Creatinine Lvl 0.5 0.5 - 1.4 05/24/2014 [facility] CHEM PANEL Sodium Lvl 137 135 - 145 05/24/2014 [facility] CHEM PANEL Glucose Lvl 86 70 - 99 05/24/2014 <sup>2</sup>Interpretive Data: Adult ref erence range values reflect the clinical guidelines
of the [place] [employer]. [facility] CHEM PANEL BUN 4 7 - 22 05/24/2014 [facility] CHEM PANEL Globulin 4.1 2.0 - 4.0 05/24/2014 [facility] CHEM PANEL A/G Ratio 0.6 0.7 - 1.6 05/24/2014 [facility] CHEM PANEL Albumin Lvl 2.6 3.5 - 5.0 05/24/2014 [facility] CHEM PANEL Alk Phos 91 39 - 136 05/24/2014 [facility] CHEM PANEL ALT 11 0 - 65 05/24/2014 [facility] HEMATOLOGY Segs 64.7 45.0 - 75.0 05/24/2014 [facility] HEMATOLOGY Monocytes 12.6 2.0 - 12.0 05/24/2014 [facility] HEMATOLOGY Lymphocytes 22.1 20.0 - 40.0 05/24/2014 [facility] HEMATOLOGY Eosinophils 0.3 0.0 - 4.0 05/24/2014 [facility] HEMATOLOGY Lymphocytes # 1.2 1.0 - 5.5 05/24/2014 [facility] HEMATOLOGY Segs-Bands # 3.5 1.5 - 8.1 05/24/2014 [facility] HEMATOLOGY Basophils 0.3 0.0 - 1.0 05/24/2014 [facility] Monocytes # 0.7 0.0 - 0.8 05/24/2014 [facility] RBC 3.39 4.20 - 5.40 05/24/2014 [facility] Hgb 9.7 12.0 - 16.0 05/24/2014 [facility] WBC 5.3 3.7 - 10.4 05/24/2014 [facility] Platelet 129 133 - 450 05/24/2014 [facility] RDW 13.0 11.5 - 14.5 05/24/2014 [facility] MCH 28.6 27.0 - 31.0 05/24/2014 [facility] Hct 29.6 36.0 - 48.0 05/24/2014 [facility] MCHC 32.8 32.0 - 36.0 05/24/2014 [facility] HEMATOLOGY MCV 87.3 80.0 - 98.0 05/24/2014 [facility] MPV 10.0 7.4 - 10.4 05/24/2014 [facility] HEMATOLOGY D-Dimer 1.04 05/24/2014 <sup>3</sup>Interpretive Data: In DIC, quantitative D-Dimer is generally greater than
0.66 ug/mL FEU. Values of quantitative D-Dimer less than
0.40 ug/mL FEU have been reported to be associated with a low
probability of deep vein thrombosis/pulmonary embolism.
This test alone should not be used to rule out DVT/PE. [facility] CHEM PANEL eGFR 139 01/16/2014 <sup>1</sup>Result Comment: The eGFR is calculated using the CKD-EPI formula. In most young, healthy individuals the eGFR will be >90 mL/min/1.73m2. The eGFR declines with age. An eGFR of 60-89 may be normal in some populations, particularly the elderly, for whom the CKD-EPI formula has not been extensively validated. Use of the eGFR is not recommended in the following populations:& lt;br/>
Individuals with unstable creatinine concentrations, including patients and those with serious co-morbid conditions.

Patients with extremes in muscle mass or diet.

The data above are obtained from the National Kidney Disease Education Program (NKDEP) which additionally recommends that when the eGFR is used in patients with extremes of body mass index for purposes of drug dosing, the eGFR should be multiplied by the estimated BMI. [facility] CHEM PANEL Chloride Lvl 104 95 - 109 01/16/2014 [facility] CHEM PANEL Calcium Lvl 9.3 8.5 - 10.5 01/16/2014 [facility] CHEM PANEL CO2 24 24 - 32 01/16/2014 [facility] CHEM PANEL Potassium Lvl 3.9 3.5 - 5.1 01/16/2014 [facility] CHEM PANEL AST 4 0 - 37 01/16/2014 [facility] CHEM PANEL Total Protein 7.6 6.4 - 8.4 01/16/2014 [facility] CHEM PANEL Bili Total 0.2 0.2 - 1.3 01/16/2014 [facility] CHEM PANEL Creatinine Lvl 0.7 0.5 - 1.4 01/16/2014 [facility] CHEM PANEL BUN 7 7 - 22 01/16/2014 [facility] CHEM PANEL Alk Phos 59 39 - 136 01/16/2014 [facility] CHEM PANEL Albumin Lvl 3.5 3.5 - 5.0 01/16/2014 [facility] CHEM PANEL ALT 12 0 - 65 01/16/2014 [facility] CHEM PANEL Sodium Lvl 137 135 - 145 01/16/2014 [facility] CHEM PANEL Glucose Lvl 92 70 - 99 01/16/2014 <sup>2</sup>Interpretive Data: Adult ref erence range values reflect the clinical guidelines
of the [place] [employer]. [facility] CHEM PANEL AGAP 12.9 10.0 - 20.0 01/16/2014 [facility] CHEM PANEL B/C Ratio 10 6 - 25 01/16/2014 [facility] CHEM PANEL Globulin 4.1 2.0 - 4.0 01/16/2014 [facility] CHEM PANEL A/G Ratio 0.9 0.7 - 1.6 01/16/2014 [facility] HEMATOLOGY MCHC 33.0 32.0 - 36.0 01/16/2014 [facility] HEMATOLOGY Platelet 170 133 - 450 01/16/2014 [facility] HEMATOLOGY MPV 9.7 7.4 - 10.4 01/16/2014 [facility] HEMATOLOGY RDW 12.5 11.5 - 14.5 01/16/2014 [facility] HEMATOLOGY Hct 37.8 36.0 - 48.0 01/16/2014 [facility] HEMATOLOGY Hgb 12.5 12.0 - 16.0 01/16/2014 [facility] MCH 29.2 27.0 - 31.0 01/16/2014 [facility] HEMATOLOGY MCV 88.5 80.0 - 98.0 01/16/2014 [facility] HEMATOLOGY RBC 4.27 4.20 - 5.40 01/16/2014 [facility] HEMATOLOGY WBC 6.8 3.7 - 10.4 01/16/2014 [facility] HEMATOLOGY Monocytes 7.5 2.0 - 12.0 01/16/2014 [facility] HEMATOLOGY Lymphocytes 34.2 20.0 - 40.0 01/16/2014 [facility] HEMATOLOGY Segs-Bands # 3.9 1.5 - 8.1 01/16/2014 [facility] HEMATOLOGY Lymphocytes # 2.3 1.0 - 5.5 01/16/2014 [facility] HEMATOLOGY Basophils 0.7 0.0 - 1.0 01/16/2014 [facility] HEMATOLOGY Eosinophils 0.8 0.0 - 4.0 01/16/2014 [facility] HEMATOLOGY Eosinophils # 0.1 0.0 - 0.5 01/16/2014 [facility] HEMATOLOGY Monocytes # 0.5 0.0 - 0.8 01/16/2014 [facility] HEMATOLOGY Segs 56.8 45.0 - 75.0 01/16/2014 [facility] URINE AND STOOL UA Bili Negative *NA* (01/16/14 4:50 PM) Negative 01/16/2014 [facility] URINE AND STOOL UA Ketones Negative *NA* (01/16/14 4:50 PM) Negative 01/16/2014 [facility] URINE AND STOOL UA Turbidity Slight Cloudy (01/16/14 4:50 PM) Clear 01/16/2014 [facility] URINE AND STOOL UA Color Yellow *NA* (01/16/14 4:50 PM) Yellow 01/16/2014 [facility] URINE AND STOOL UA Protein Negative (01/16/14 4:50 PM) Negative 01/16/2014 [facility] URINE AND STOOL UA pH 6.5 5.0 - 8.0 01/16/2014 [facility] URINE AND STOOL UA Glucose Negative (01/16/14 4:50 PM) Negative 01/16/2014 [facility] URINE AND STOOL UA Spec Grav 1.025 <=1.030 01/16/2014 [facility] URINE AND STOOL UA Leuk Est Small *ABN* (01/16/14 4:50 PM) Negative 01/16/2014 [facility] URINE AND STOOL UA Urobilinogen 2.0 0.1 - 1.0 01/16/2014 [facility] URINE AND STOOL UA Blood Negative (01/16/14 4:50 PM) Negative 01/16/2014 [facility] URINE AND STOOL UA Nitrite Negative (01/16/14 4:50 PM) Negative 01/16/2014 [facility] URINE AND STOOL UA WBC 3-5 /HPF None Seen /HPF 01/16/2014 [facility] URINE AND STOOL UA Bacteria Few /HPF None Seen /HPF 01/16/2014 [facility] URINE AND STOOL UA RBC 0-2 /HPF 0 - 2 01/16/2014 [facility] URINE AND STOOL UA Sq Epi Many /LPF Few /LPF 01/16/2014 [facility] URINE CHEM U Preg Posit hussain *ABN* (01/16/14 4:50 PM) Negative 01/16/2014 [facility] HEMATOLOGY Segs 66.0 45.0 - 75.0 09/13/2011 Normal [facility] HEMATOLOGY Eosinophils 0.0 0.0 - 4.0 09/13/2011 Normal [facility] HEMATOLOGY Monocytes 10.4 2.0 - 12.0 09/13/2011 Normal [facility] HEMATOLOGY Basophils 0.2 0.0 - 1.0 09/13/2011 [facility] HEMATOLOGY Segs-Bands # 5.6 1.5 - 8.1 09/13/2011 [facility] HEMATOLOGY Lymphocytes # 2.0 1.0 - 5.5 09/13/2011 [facility] HEMATOLOGY Eosinophils # 0.0 0.0 - 0.5 09/13/2011 [facility] HEMATOLOGY Monocytes # 0.9 0.0 - 0.8 09/13/2011 [facility] HEMATOLOGY Basophils # 0.0 0.0 - 0.2 09/13/2011 [facility] HEMATOLOGY Lymphocytes 23.4 20.0 - 40.0 09/13/2011 [facility] HEMATOLOGY RBC 3.71 4.20 - 5.40 09/13/2011 [facility] HEMATOLOGY WBC 8.5 3.7 - 10.4 09/13/2011 [facility] HEMATOLOGY Hgb 10.6 12.0 - 16.0 09/13/2011 [facility] HEMATOLOGY Hct 32.1 36.0 - 48.0 09/13/2011 [facility] HEMATOLOGY MCH 28.8 27.0 - 31.0 09/13/2011 [facility] HEMATOLOGY MCV 86.6 81.0 - 99.0 09/13/2011 [facility] HEMATOLOGY MCHC 33.2 32.0 - 36.0 09/13/2011 [facility] HEMATOLOGY Platelet 121 133 - 450 09/13/2011 [facility] HEMATOLOGY RDW 14.8 11.5 - 14.5 09/13/2011 [facility] HEMATOLOGY MPV 9.7 7.4 - 10.4 09/13/2011 [facility] IMMUNOLOGY Chlam PCR Negat hussain (09/12/2011 18:27:00) Negati ve 09/12/2011 [facility] IMMUNOLOGY Source Chlam endoc ervix 09/12/2011 [facility] IMMUNOLOGY Source Shakir Endoc ervix 09/12/2011 [facility] IMMUNOLOGY Gonorrhea PCR Negat hussain (09/12/2011 18:27:00) Negati ve 09/12/2011 [facility] BLOOD BANK RESULTS Antibody Scrn Negative (09/12/2011 15:54:00) 09/12/2011 Normal [facility] BLOOD BANK RESULTS ABO/Rh AB POS 09/12/2011 Unknown [facility] CHEMISTRY Lactic Acid Lvl 1.2 0.5 - 2.2 09/12/2011 Normal [facility] IMMUNOLOGY CDC-HIV 1/2 Ab Negat hussain *NA* (09/12/2011 08:16:00) Negati ve 09/12/2011 NA [facility] CHEMISTRY AGAP 19.5 10.0 - 20.0 09/12/2011 Normal [facility] CHEMISTRY CO2 18 24 - 32 09/12/2011 LOW [facility] CHEMISTRY Calcium Lvl 9.1 8.5 - 10.5 09/12/2011 Normal [facility] CHEMISTRY BUN 8 7 - 22 09/12/2011 Normal [facility] CHEMISTRY Potassium Lvl 4.5 3.5 - 5.1 09/12/2011 Normal <sup>1</sup>Result Comment: Specimen Sli ghtly Hemolyzed. [facility] CHEMISTRY Chloride Lvl 105 95 - 109 09/12/2011 Normal [facility] CHEMISTRY Glucose Lvl 111 70 - 99 09/12/2011 [facility] <sup>2</sup>Interpretive Data: Adult ref erence range values reflect the clinical guidelines of the [place] [employer]. [facility] CHEMISTRY Sodium Lvl 138 135 - 145 09/12/2011 Normal [facility] CHEMISTRY Creatinine Lvl 0.8 0.5 - 1.4 09/12/2011 Normal [facility] CHEMISTRY U Preg Negati ve (09/12/2011 07:37:00) Negati ve 09/12/2011 Normal [facility] CHEMISTRY Lipase Lvl 100 73 - 393 09/12/2011 Normal [facility] CHEMISTRY ALT 33 0 - 65 09/12/2011 Normal [facility] CHEMISTRY Alk Phos 92 39 - 136 09/12/2011 Normal [facility] CHEMISTRY Bili Direct 0.1 0.0 - 0.3 09/12/2011 Normal [facility] CHEMISTRY Bili Total 0.8 0.2 - 1.3 09/12/2011 Normal [facility] CHEMISTRY Total Protein 7.6 6.4 - 8.4 09/12/2011 Normal [facility] CHEMISTRY Albumin Lvl 4.1 3.5 - 5.0 09/12/2011 Normal [facility] CHEMISTRY Globulin 3.5 2.0 - 4.0 09/12/2011 Normal [facility] [facility] CHE[facility]STR[facility] A/G Ratio 1.2 0.7 - 1.6 09/12/2011 Normal [facility] CHEMISTRY AST 29 0 - 37 09/12/2011 Normal <sup>3</sup>Result Comment: Specimen Mod erately Hemolyzed. [facility] CHEMISTRY Bili Indirect 0.7 0.0 - 1.0 09/12/2011 Normal [facility] HEMATOLOGY RDW 13.9 11.5 - 14.5 09/12/2011 Normal [facility] HEMATOLOGY Platelet 123 133 - 450 09/12/2011 LOW [facility] HEMATOLOGY MCV 84.4 81.0 - 99.0 09/12/2011 Normal [facility] HEMATOLOGY MCH 27.9 27.0 - 31.0 09/12/2011 Normal [facility] HEMATOLOGY MCHC 33.1 32.0 - 36.0 09/12/2011 Normal [facility] HEMATOLOGY Hct 36.2 36.0 - 48.0 09/12/2011 Normal [facility] HEMATOLOGY MPV 9.9 7.4 - 10.4 09/12/2011 Normal [facility] HEMATOLOGY RBC 4.29 4.20 - 5.40 09/12/2011 Normal [facility] HEMATOLOGY Hgb 12.0 12.0 - 16.0 09/12/2011 Normal [facility] HEMATOLOGY WBC 7.6 3.7 - 10.4 09/12/2011 Normal [facility] HEMATOLOGY Basophils 0.7 0.0 - 1.0 09/12/2011 [facility] HEMATOLOGY Lymphocytes # 1.4 1.0 - 5.5 09/12/2011 Normal [facility] HEMATOLOGY Segs-Bands # 5.8 1.5 - 8.1 09/12/2011 Normal [facility] HEMATOLOGY Basophils # 0.1 0.0 - 0.2 09/12/2011 [facility] HEMATOLOGY Lymphocytes 18.9 20.0 - 40.0 09/12/2011 LOW [facility] HEMATOLOGY Monocytes 4.4 2.0 - 12.0 09/12/2011 Normal [facility] HEMATOLOGY Eosinophils 0.4 0.0 - 4.0 09/12/2011 Normal [facility] HEMATOLOGY Segs 75.6 45.0 - 75.0 09/12/2011 HI [facility] HEMATOLOGY Eosinophils # 0.0 0.0 - 0.5 09/12/2011 Normal [facility] HEMATOLOGY Monocytes # 0.3 0.0 - 0.8 09/12/2011 Normal [facility] URINALYSIS UA Sperm rare 09/12/2011 NA [facility] URINALYSIS UA Amorph Aliza Few / HPF *ABN* (09/12/2011 07:37:00) None S een 09/12/2011 ABN [facility] URINALYSIS UA Mucus Few / LPF (09/12/2011 07:37:00) None S een 09/12/2011 Normal [facility] URINALYSIS UA Sq Epi Occas ional /LPF (09/12/2011 07:37:00) Few 09/12/2011 Normal [facility] URINALYSIS UA Bacteria Occas ional /HPF (09/12/2011 07:37:00) None S een 09/12/2011 Normal [facility] URINALYSIS UA RBC 0-2 / HPF (09/12/2011 07:37:00) 0 - 2 09/12/2011 Normal [facility] URINALYSIS UA WBC 0-2 / HPF (09/12/2011 07:37:00) None S een 09/12/2011 Normal [facility] URINALYSIS Micro? Perfo rmed (09/12/2011 07:37:00) 09/12/2011 Normal [facility] URINALYSIS UA Nitrite Negat hussain (09/12/2011 07:37:00) Negati ve 09/12/2011 Normal [facility] URINALYSIS UA Urobilinogen 1.0 0.1 - 1.0 09/12/2011 Normal [facility] URINALYSIS UA Blood Negat hussain (09/12/2011 07:37:00) Negati ve 09/12/2011 Normal [facility] URINALYSIS UA Leuk Est Negat hussain (09/12/2011 07:37:00) Negati ve 09/12/2011 Normal [facility] URINALYSIS UA Protein Trace *ABN* (09/12/2011 07:37:00) Negati ve 09/12/2011 ABN [facility] URINALYSIS UA pH 8.5 5.0 - 8.0 09/12/2011 HI [facility] URINALYSIS UA Spec Grav 1.025 <=1.030 09/12/2011 Normal [facility] URINALYSIS UA Glucose Negat hussain (09/12/2011 07:37:00) Negati ve 09/12/2011 Normal [facility] URINALYSIS UA Bili Negat hussain *NA* (09/12/2011 07:37:00) Negati ve 09/12/2011 NA [facility] URINALYSIS UA Ketones >=80 mg/dL *ABN* (09/12/2011 07:37:00) Negati ve 09/12/2011 ABN [facility] URINALYSIS UA Turbidity Sligh t Cloudy (09/12/2011 07:37:00) Clear 09/12/2011 Normal [facility] URINALYSIS UA Color Yello w *NA* (09/12/2011 07:37:00) Yellow 09/12/2011 NA [facility] Pathology Reports No Data Provided for This Section Diagnostic Reports Report Value Date Source Abdomen AP DX EXAM: Abdomen HISTORY: Acute epigastric abdominal pain COMPARISON: 11/20/2014 TECHNIQUE: Supine view abdomen FINDINGS: Nonspecific bowel pattern. Bones are intact. 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 FINDINGS: Transabdominal and transvaginal evaluation of the pelvis was done. The uterus is 9.7 cm in length and 4.0 x 5.6 cm in transverse dimension. The endometrium is 1.6 cm in thickness. There is no evidence of mass or intrauterine . No significant abnormality of the bladder is demonstrated. The right ovary is not visualized consistent with oophorectomy. The left ovary is 5.0 x 2.8 x 2.5 cm in size. There is a 2.4 cm unilocular simple cyst in the left ovary and a 1.6 cm isoechoic nodule in the left ovary, which may be the residua of a previously demonstrated 2.1 cm complex cyst on the pelvic ultrasound of 09/12/2011. Satisfactory color-flow in the left ovary is demonstrated. No free fluid in the pelvis is demonstrated. IMPRESSION: 1. Endometrial thickening, probably rela xin to phase of cycle. 2. Post right oophorectomy. 3. Small left ovarian simple cyst and sm all isoechoic nodule in the left ovary. Continued ultrasound follow-up is suggested. SL:13 05/14/2015 [facility] Abdomen/Pelvis w IV contrast CT CT Abdomen with Contrast, CT Pelvis with Contrast: TECHNIQUE: Contiguous transaxial images of the abdomen and pelvis were performed from the lung bases to the superior pubic rami with IV contrast. Oral contrast was not administered COMPARISON: 09/12/2011 CLINICAL HX: Abdomen pain, fever CT ABDOMEN: Lower Chest: The lung bases are clear. GI Tract: The appendix demonstrates normal morphology. There is no evidence for free fluid or free air in the abdomen. Tract and retroperitoneum: The kidneys demonstrate normal morphology and symmetric excretion. No significant retroperitoneal lymphadenopathy is noted. Abdominal viscera: The liver, spleen, pancreas, both adrenals, and the gallbladder demonstrate normal morphology. Vasculature: Aorta demonstrates normal morphology. Bone and Soft tissues: No significant bony abnormality is noted. CT PELVIS: The bladder and the uterus demonstrate normal morphology. Low-density focus in the left adnexa likely represents an ovarian cyst. No free fluid is present in the pelvis. IMPRESSION: Probable, small left ovarian cyst. No other significant abnormality is noted on the contrast CT of the abdomen or pelvis. SL:13 11/20/2014 [facility] Consultation Notes No Data Provided for This Section Discharge Summaries No Data Provided for This Section History and Physicals No Data Provided for This Section Vital Signs Vital Sign Value Date Comments Source Systolic (mm Hg) 117 12/25/2018 [facility] Diastolic (mm Hg) 75 12/25/2018 [facility] Heart Rate 95 12/25/2018 [facility] Respitory Rate 18 12/25/2018 [facility] Temperature Oral (F) 98.0 F 12/25/2018 [facility] Height 165.1 cm 12/25/2018 [facility] Weight 77.909 12/25/2018 [facility] BMI Calculated 28.58 12/25/2018 [facility] Weight 73.636 07/11/2018 [facility] BMI Calculated 27.01 07/11/2018 [facility] Height 165.1 cm 07/11/2018 [facility] Temperature Oral (F) 98.2 F 07/11/2018 [facility] Systolic (mm Hg) 124 07/11/2018 [facility] Diastolic (mm Hg) 71 07/11/2018 [facility] Respitory Rate 18 07/11/2018 [facility] Heart Rate 82 07/11/2018 [facility] Weight 77.273 08/04/2016 [facility] BMI Calculated 29.24 08/04/2016 [facility] Height 162.56 cm 08/04/2016 [facility] Heart Rate 83 08/04/2016 [facility] Respitory Rate 18 08/04/2016 [facility] Temperature Oral (F) 98.4 F 08/04/2016 [facility] Systolic (mm Hg) 134 08/04/2016 [facility] Diastolic (mm Hg) 78 08/04/2016 [facility] Systolic (mm Hg) 112 12/23/2015 [facility] Diastolic (mm Hg) 75 12/23/2015 [facility] Respitory Rate 18 12/23/2015 [facility] Heart Rate 73 12/23/2015 [facility] Systolic (mm Hg) 121 12/23/2015 [facility] Diastolic (mm Hg) 76 12/23/2015 [facility] Height 162.56 cm 12/23/2015 [facility] Weight 75 0 12/23/2015 [facility] BMI Calculated 28.38 12/23/2015 [facility] Temperature Oral (F) 98.5 F 12/23/2015 [facility] Systolic (mm Hg) 123 12/23/2015 [facility] Diastolic (mm Hg) 72 12/23/2015 [facility] Respitory Rate 18 12/23/2015 [facility] Heart Rate 93 12/23/2015 [facility] Systolic (mm Hg) 112 05/14/2015 [facility] Diastolic (mm Hg) 72 05/14/2015 [facility] Respitory Rate 16 05/14/2015 [facility] Heart Rate 60 05/14/2015 [facility] Temperature Oral (F) 99 F 05/14/2015 [facility] Weight 72.273 05/14/2015 [facility] BMI Calculated 27.35 05/14/2015 [facility] Height 162.56 cm 05/14/2015 [facility] Temperature Oral (F) 98.2 F 05/14/2015 [facility] Heart Rate 68 05/14/2015 [facility] Respitory Rate 18 05/14/2015 [facility] Systolic (mm Hg) 118 05/14/2015 [facility] Diastolic (mm Hg) 62 05/14/2015 [facility] Systolic (mm Hg) 128 11/20/2014 [facility] Diastolic (mm Hg) 80 11/20/2014 [facility] Temperature Oral (F) 98.0 F 11/20/2014 [facility] Heart Rate 69 11/20/2014 [facility] Respitory Rate 18 11/20/2014 [facility] Temperature Oral (F) 98.4 F 11/20/2014 [facility] BMI Calculated 24.77 11/20/2014 [facility] Respitory Rate 18 11/20/2014 [facility] Heart Rate 75 11/20/2014 [facility] Systolic (mm Hg) 110 11/20/2014 [facility] Diastolic (mm Hg) 67 11/20/2014 [facility] Height 162.56 cm 11/20/2014 [facility] Weight 65.455 11/20/2014 [facility] Respitory Rate 20 11/18/2014 [facility] Temperature Oral (F) 98.9 F 11/18/2014 [facility] Heart Rate 82 11/18/2014 [facility] Systolic (mm Hg) 128 11/18/2014 [facility] Diastolic (mm Hg) 72 11/18/2014 [facility] BMI Calculated 24.6 11/18/2014 [facility] Height 162.56 cm 11/18/2014 [facility] Weight 65 0 11/18/2014 [facility] Temperature Oral (F) 100.0 F 11/18/2014 [facility] Heart Rate 84 11/18/2014 [facility] Respitory Rate 20 11/18/2014 [facility] Systolic (mm Hg) 132 11/18/2014 [facility] Diastolic (mm Hg) 79 11/18/2014 [facility] Respitory Rate 18 05/24/2014 [facility] Systolic (mm Hg) 99 05/24/2014 [facility] Diastolic (mm Hg) 55 05/24/2014 [facility] Temperature Oral (F) 98.4 F 05/24/2014 [facility] Heart Rate 85 05/24/2014 [facility] Heart Rate 99 05/24/2014 [facility] Diastolic (mm Hg) 60 05/24/2014 [facility] Respitory Rate 18 05/24/2014 [facility] Temperature Oral (F) 98.1 F 05/24/2014 [facility] Systolic (mm Hg) 113 05/24/2014 [facility] Weight 72.727 05/24/2014 [facility] BMI Calculated 27.52 05/24/2014 [facility] Height 162.56 cm 05/24/2014 [facility] Respitory Rate 18 01/16/2014 [facility] Systolic (mm Hg) 118 01/16/2014 [facility] Diastolic (mm Hg) 68 01/16/2014 [facility] Temperature Oral (F) 98 F 01/16/2014 [facility] Heart Rate 73 01/16/2014 [facility] Systolic (mm Hg) 125 01/16/2014 [facility] Diastolic (mm Hg) 68 01/16/2014 [facility] Temperature Oral (F) 98.2 F 01/16/2014 [facility] Heart Rate 84 01/16/2014 [facility] Respitory Rate 18 01/16/2014 [facility] Height 162.56 cm 01/16/2014 [facility] BMI Calculated 28.38 01/16/2014 [facility] Weight 75 0 01/16/2014 [facility] Systolic (mm Hg) 125 01/16/2014 [facility] Diastolic (mm Hg) 66 01/16/2014 [facility] Temperature Oral (F) 98.7 F 01/16/2014 [facility] Heart Rate 81 01/16/2014 [facility] Respitory Rate 18 01/16/2014 [facility] Temperature Oral (F) 98.7 F 11/22/2013 [facility] BMI Calculated 26.66 11/22/2013 [facility] Height 162.56 cm 11/22/2013 [facility] Weight 70.455 11/22/2013 [facility] Diastolic (mm Hg) 76 11/22/2013 [facility] Heart Rate 80 11/22/2013 [facility] Respitory Rate 20 11/22/2013 [facility] Systolic (mm Hg) 118 11/22/2013 [facility] Heart Rate 77 09/14/2011 [facility] Systolic (mm Hg) 102 09/14/2011 [facility] Respitory Rate 18 09/14/2011 [facility] Diastolic (mm Hg) 61 09/14/2011 [facility] Temperature Oral (F) 97.2 F 09/14/2011 [facility] Diastolic (mm Hg) 61 09/14/2011 [facility] Respitory Rate 19 09/14/2011 [facility] Systolic (mm Hg) 102 09/14/2011 [facility] Temperature Oral (F) 98.3 F 09/14/2011 [facility] Heart Rate 82 09/14/2011 [facility] Diastolic (mm Hg) 56 09/14/2011 [facility] Systolic (mm Hg) 100 09/14/2011 [facility] Respitory Rate 19 09/14/2011 [facility] Heart Rate 81 09/14/2011 [facility] Temperature Oral (F) 98.6 F 09/14/2011 [facility] Height 162.56 cm 09/13/2011 [facility] Weight 68.182 09/13/2011 [facility] Weight 68.182 09/12/2011 [facility] Height 162.56 cm 09/12/2011 [facility] Encounters Location Location Details Encounter Type Encounter Number Reason For Visit Attending Provider ADM Date DC Date Status Source [facility] Inpatient [id number] SYEDA FRANKLIN 09/12/2011 09/14/2011 Discharged [facility] Emergency [id number] ALONDRA SHAVER 09/20/2011 09/21/2011 Discharged [facility] [id number] Wilfred Deshaun 11/21/2013 11/22/2013 [facility] [id number] Loc Gillpaty 01/16/2014 01/16/2014 [facility] [id number] Dipesh Anderson 05/24/2014 05/24/2014 [facility] [id number] Dipesh Anderson 11/18/2014 11/18/2014 [facility] [id number] Atif Carvajal 11/20/2014 11/20/2014 [facility] [id number] Nils Tereza 05/14/2015 05/14/2015 [facility] Emergency [id number] Adrián Coates Jr 12/23/2015 12/23/2015 [facility] Emergency [id number] Lizette Olade 08/04/2016 08/04/2016 [facility] Gold Pod Ambulatory Pre-Reg [id number] Bran Henderson 05/11/2018 05/11/2018 [facility] [id number] LAZARA HILL 07/11/2018 [facility] Outpatient [id number] 07/11/2018 07/12/2018 [facility] [id number] Ramashilpa Sudireddy 08/01/2018 [facility] Green Pod Ambulatory Pre-Reg [id number] Ramashilpa Sudireddy 08/01/2018 08/01/2018 [facility] [id number] Gokul Cassidy 12/25/2018 [facility] Purple Pod Outpatient [id number] 12/25/2018 12/26/2018 [facility] [id number] Syeda Herrera 08/24/2019 [facility] Gold Pod Ambulatory Pre-Reg [id number] Syeda Javier 08/24/2019 08/24/2019 [facility] Procedures Procedure Code Date Perfomer Comments Source section [id number] [facility] [id number] [id number] [facility] Tonsillectomy [id number] [facility] Assessment and Plan No Data Provided for This Section Plan of Care No Data Provided for This Section Social History Social History Date Source Social History TypeResponse Smoking Status Never smoker; Exposure to Tobacco Smoke None; Cigarette Smoking Last 365 Days Yes; Reg Smoking Cessation Counseling Yes entered on: 12/25/18 12/25/2018 [facility] Social History TypeResponse Smoking Status Never smoker; Exposure to Tobacco Smoke None; Cigarette Smoking Last 365 Days Yes; Reg Smoking Cessation Counseling Yes 08/04/2016 [facility] Social History TypeResponse Smoking Status Never smoker; Exposure to Tobacco Smoke None; Cigarette Smoking Last 365 Days Yes; Reg Smoking Cessation Counseling Yes 05/14/2015 [facility] Family History No Data Provided for This Section Advance Directives No Data Provided for This Section Functional Status No Data Provided for This Section
--- OUTSIDE RECORDS SUMMARY | 2020-03-25 11:42 | XMS REPORT | Continuity of Care Document ---
Author Author [facility] t Organization [facility] Address [address] [place] [address] Phone Unavailable Care Team Providers Care Mat Sewer Name Role Phone NO, PCP PCP Unavailable Gely Herrera Attphys Christina Platt Attphys Dipesh Henderson Attphys Av Nicholas Lizette Attphys Tavares Coates Jr Attphys Marva Starks Attphys Tomás Carvajal Attphys Ruddy Anderson Attphys Kamla Kearns Attphys Osei Meade Attphys Problems Condition Name Condition Details Condition Category Status Onset Date Resolution Date Last Treatment Date Treating Clinician Comments Source 33 weeks gestation of 33 weeks gestation of Dis ease Active 2017-11-19 00:00:00 [facility] Antepartum placental abruption Antepartum placental abruption Disea se Active 2017-11-19 00:00:00 [facility] distress affecting delivery distress affecting deliv sharonda Disease Active 2017-11-19 00:00:00 [place] [facility] Disease Active 2017-11-17 00:00:00 Conner Irene HEAD AND TOOTH PAIN HEAD AND TOOTH PAIN Active 08/04/2016 [facility] Diagnosis Active 2016-08-04 00:00:00 2016-08-04 08:47: 00 [facility] ABD PAIN ABD PAIN Active 12/22/2015 [facility] Diagnosis Active 2015-12-22 00:00:00 2015-12-23 00:56:00 [facility] ABDOMINAL PAIN ABDO SEBASTIAN PAIN Active 05/14/2015 [facility] Diagnosis Active 2015-05-14 00:00:00 2015-05-14 08:54:00 [facility] SOB SOB Active 05/24/2014 [facility] Diagnosis Active 2014-05-24 00:00:00 2014-05-30 12:48:00 [facility] VOMITTING VOMI TTING Active 01/16/2014 [facility] Diagnosis Active 2014-01-16 00:00:00 2014-01-23 06:51:00 [facility] HEADACHE HEAD ACHE Active 11/21/2013 [facility] Diagnosis Active 2013-11-21 13:00:00 2013-11-21 22:51:00 [facility] FEVER FEVE R Active 09/20/2011 [facility] Diagnosis Active 2011-09-20 00:00:00 2011-09-21 06:17:00 [facility] VOMITTING,ABDOMINAL PAIN VOMI TTING,ABDOMINAL PAIN Active 09/12/2011 [facility] Diagnosis Active 2011-09-12 00:00:00 2011-09-12 08:07:00 [facility] Viral infection Problem Active [facility] Acute upper respiratory infection Problem Active [facility] Suspected severe acute respiratory syndr ome coronavirus 2 (SARS-CoV-2) infection Problem Active [facility] Cyst of ovary (disorder) Cyst of ovary (disorder) Resolved [facility]olved 2019-08-26 21:31:21 [facility] Contraception (finding) Cont raception (finding) Active Problem 08/26/2019 [facility] Problem Active 2019-08-26 21: 31:21 [facility] Nausea (finding) Naus ea (finding) [facility] Active 2018-11-28 13:00:51 [facility] Pain (finding) Pain (finding) Active Problem 11/28/2018 [facility] Problem Active 2018-11-28 13:00:51 [facility] Nausea Naus ea Active Problem 09/16/2011 [facility] Problem Active 2011-09-16 09:01:07 [facility] Pain Pain Active Problem 09/16/2011 [facility] Problem Active 2011-09-16 09:01:07 [facility] Other specified disorders of teeth and supporting stru ctures Other specified disorders of teeth and supporting structures 08/04/2016 08/07/2016 [facility] Problem 2016-08-04 05:00:00 2016-08-07 03:54: 54 2016-08-07 03:54:54 [facility] Dental caries [place] caries 08/04/2016 08/07/2016 [facility] Problem 2016-08-04 05:00:00 2016-08-07 03:54:54 2016-08 03:54:54 [facility] Discharge Diagnosis: Abdominal pain Discharge Diagnosis: Abdominal pain 12/23/2015 12/26/2015 [facility] Problem 2015-12-23 05:00:00 2015-12-26 03:12:37 2015-12-26 03:12:37 [facility] Discharge Diagnosis: Bacterial vaginosis Discharge Diagnosis: Bacterial vaginosis 05/14/2015 05/17/2015 [facility] Problem 2015-05-14 06:00:00 2015-05-17 04:00:14 2015-05-17 04:00:14 [facility] Discharge Diagnosis: Abdominal pain of unknown etiolog y Discharge Diagnosis: Abdominal pain of unknown etiology 11/20/2014 11/23/2014 [facility] Problem 2014-11-20 05:00:00 2014-11-23 03:36:54 2014-11 03:36:54 [facility] Discharge Diagnosis: Ovarian cyst Discharge Diagnosis: Ovarian cyst 11/20/2014 11/23/2014 [facility] Problem 2 05:00:00 2014-11-23 03:36:54 2014-11-23 03:36:54 [facility] Discharge Diagnosis: Menorrhagia Discharge Diagnosis: Menorrhagia 11/17/2014 11/21/2014 [facility] Problem 20 21-11-11 05:00:00 2014-11-21 02:04:58 2014-11-21 02:04:58 [facility] Discharge Diagnosis: Dyspnea D ischarge Diagnosis: Dyspnea 05/24/2014 05/26/2014 [facility] Problem 0 16 06:00:00 2014-05-26 18:25:41 2014-05-26 18:25:41 [facility] Discharge Diagnosis: Nausea and vomiting in Discharge Diagnosis: Nausea and vomiting in 01/16/2014 01/19/2014 [facility] Problem 2014-01-16 05:00:00 2014-01-19 03:55:18 2014-01 03:55:18 [facility] Discharge Diagnosis: Discharge Diagnosis: 01/16/2014 01/19/2014 [facility] Problem 2013 05:00:00 2014-01-19 03:55:18 2014-01-19 03:55:18 [facility] Allergies, Adverse Reactions, Alerts Allergy Name Allergy Type Status Severity Reaction(s) Onset Date Inacti ve Date Treating Clinician Comments Source No Known Medication Allergies No Known Medication Allergies Active [facility] Family History Family Member Diagnosis Comments Start Date Stop Date Source Natural mother Cancer [facility] Social History Social Habit Start Date Stop Date Quantity Comments Source Sex Assigned At Norberto rubiorajiv Irene Tobacco use and exposure 2019-01-29 00:00:00 2019-01-29 00:00:00 Lisbeth wallace used [facility] Alcohol intake 2019-01-29 00:00:00 2019-01-29 00:00:00 Current non-drinker of alcohol (finding) [facility] Smoking Status Start Date Stop Date Source Social History [facility] Medications Ordered Medication Name Filled Medication Name Start Date Stop Da te Current Medication? Ordering Clinician Indication Dosage Frequency Signature (SIG) Comments Components Source Dexamethasone (Decadron) 6 Mg TABLET Dexamethasone (Decadron ) 6 Mg TABLET 2020-03-10 11:50:00 Yes 1 Daily [facility] Azithromycin (Zithromax) 250 Mg TABLET Azithromycin (Zithrom ax) 250 Mg TABLET 2020-03-10 11:47:00 Yes 2 Today for Infectio n [facility] Depo-Provera 2018-07-11 16:46:00 No 150 mg, Route: IM, Drug form: SUSP, ONCE, Dosing Weight 73.636, kg, Start date: 07/11/18 10:46:00 [employer] SELECTOR, Stop date: 07/11/18 10:46:00 [employer] SELECTOR [facility] brantley Acetaminophen 300 MG / Codeine Phosphate 30 MG Oral Tablet [Tylenol with Codeine #3] 2016-08-04 13:39:00 Yes 1 - 2 tab, PO, Q6H, PRN Pain, X 4 day, # 32 tab, 0 Refill(s) [facility] Penicillin V Potassium 500 MG Oral Tablet 2016-08-04 13:38:00 Yes 500 mg = 1 tab, PO, Q6H, X 10 day, # 40 tab, 0 Refill(s) [facility] lactulose 10 g oral powder 2015-12-23 08:13:00 Yes = 1 Pack, PO, BID, X 5 day, # 10 gm, 0 Refill(s) [facility] Lactulose 2015-12-23 08:12:00 No 30 ml, Route: PO, Drug Form: SYRP, Dosing Weight 75, kg, ONCE, STAT, Start date: 12/23/15 3:12:00 CDT, Stop date: 12/23/15 3:12:00 CDT [facility] Ondansetron 2015-12-23 05:44:00 No 4 mg, Route: IVP, ONCE, Dosing Weight 75, kg, Priority: STAT, Start date: 12/23/15 0:44:00 CDT, Stop date: 12/23/15 0:44:00 CDT [facility] Saline Flush 0.9% 2015-12-23 05:44:00 No Notes: (Same as: BD Posiflush) [facility] GI cocktail 2015-12-23 05:44:00 No 30 mL, Route: PO, Dosing Weight 75, kg, ONCE, STAT, Start date: 12/23/15 0:44:00 CDT, Stop date: 12/23/15 0:44:00 CDT [facility] Metronidazole 500 MG Oral Tablet [Flagyl] 2015-05-14 17:59:00 Yes 500 mg = 1 tab, PO, Q8H, X 14 day, # 42 tab, 0 Refill(s) [facility] Ketorolac 2015-05-14 14:32:00 No 30 mg, Route: IVP, Drug form: INJ, ONCE, Dosing Weight 72.273, kg, Priority: STAT, Start date: 05/14/15 8:32:00, Stop date: 05/14/15 8:32:00 Nikhil brantley Sodium Chloride 0.154 MEQ/ML Injectable Solution 2015-05-14 14:3 0:00 No 1,000 mL, 1,000 ml/hr, Infus e Over: 1 hr, Route: IV, ONCE, Priority: STAT, Dosing Weight 72.273 kg, Start date: 05/14/15 8:30:00, Duration: 1 doses or times, Stop date: 05/14/15 8:30:00 [facility]rilol [facility] Ketorolac Tromethamine 10 MG Oral Tablet 2014-11-20 18:22:00 Yes 10 mg = 1 tab, PO, TID, PRN Pain, X 5 day, # 15 tab, 0 Refill(s) Nikhil Alan Acetaminophen 2014-11-20 16:30:00 No Notes: Max acetaminophen 4000 mg/day (4 gm/day). (Same as: Tylenol Extra Strength) [facility] Acetaminophen 2014-11-18 03:53:00 No Notes: Do not exceed 4 gm/day. (Same as: Tylenol) [facility] Saline Flush 0.9% 2014-11-18 03:53:00 No Notes: (Same as: BD Posiflush) Nikhil Alan PreNata oral tablet, chewable 2014-05-24 14:32:00 Yes 0 Refill(s) [facility] Saline Flush 0.9% 2014-05-24 14:25:00 No Notes: Same as: BD Posiflush Sterile [facility] Ondansetron 4 MG Disintegrating Tablet [Zofran] 2014-01-16 22:11 :00 Yes Special Instructions: Dissolve tab under tongue Nikhil Alan Zofran 2014-01-16 21:30:00 No Notes: (Same as: Zofran) Nikhil Alan Sodium Chloride 0.154 MEQ/ML Injectable Solution 2014-01-16 21:3 0:00 No 1,000 mL, 1,000 ml/hr, Infus e Over: 1 hr, Route: IV, 1,000, Drug form: INJ, ONCE, Priority: STAT, Dosing Weight 75 kg, Start date: 01/16/14 16:30:00, Duration: 1 doses or times, Stop date: 01/16/14 16:30:00 [facility] ferrous sulfate 325 mg oral enteric coated tablet 11:50:38 Yes Serina Cummins Shannon 325 mg, 1 tab, P O, Daily, 30 tab, Substitution Allowed, ECTAB [facility] ibuprofen 600 mg oral tablet 2011-09-14 11:50:32 Yes Karin Cummins Shannon 600 mg, 1 tab, PO, QID, PRN, 30 tab, Pain, Substitution Allowed, TAB [facility] [place] 5/325 oral tablet 2011-09-14 11:50:28 Yes Serina Cummins Shannon 1 tab, PO, Q6H, PRN, 20 tab, Pain, Substitution Allowed, Maintenance, TAB [facility] docusate sodium 100 mg oral capsule 2011-09-14 11:50:25 Yes Serina Cummins Shannon 100 mg, 1 cap, PO, B ID, PRN, 30 cap, Constipation, Substitution Allowed, CAP [facility] Saline Flush 0.9% 2011-09-14 02:00:00 No Milka Lu 5 ml, Route: IVP, Drug Form: INJ, Q12H, Start date: 09/13/11 21:00:00, Duration: 30 day, Stop date: 10/13/11 9:00:00 [facility] al[facility]zd[facility] Colace 100 mg oral capsule 2011-09-13 22:00:00 No Milka Lu 100 mg, 1 cap, R oute: PO, BID, Start date: 09/13/11 17:00:00, Duration: 30 day, Stop date: 10/13/11 9:00:00 Gumarojose alejandro alvarezdario [facility] ibuprofen 2011-09-13 20:34:00 No Carmen Flores Berenice 600 mg, 1 tab, Route: PO, Drug form: TAB, QID, PRN Pain, Start date: 09/13/11 15:34:00, Duration: 30 day, Stop date: 10/13/11 15:33:00 [facility] Phenergan 2011-09-13 16:57:00 No Milka Claros gton 25 mg, 1 tab, Route: PO, Drug form: TAB, Q6H, PRN Nausea & Vomiting, Start date: 09/13/11 11:57:00, Duration: 30 day, Stop date: 10/13/11 11:56:00 [facility] Zofran 2011-09-13 16:57:00 No Milka Leary n 4 mg, 1 tab, Route: PO, Drug form: TAB, Q8H, PRN Nausea, Start date: 09/13/11 11:57:00, Duration: 30 day, Stop date: 10/13/11 11:56:00 [facility] Saline Flush 0.9% 2011-09-13 16:56:00 No Milka Lu 5 ml, Route: IVP, Drug Form: INJ, PRN, PRN Line Flush, Start date: 09/13/11 11:56:00, Duration: 30 day, Stop date: 10/13/11 [facility] 16:54:00 No Milka Perez on 160 mg, Route: PO, Drug form: CHEWTAB, Q6H, PRN Gas, Start date: 09/13/11 11:54:00, Duration: 30 day, Stop date: 10/13/11 11:53:00 [facility] [place] 5/325 oral tablet 2011-09-13 16:54:00 No Myriam Lu 2 tab, Route: PO, Drug Form: TAB, Q6H, PRN Pain, Start date: 09/13/11 11:54:00, Duration: 30 day, Stop date: 10/13/11 11:53:00 [facility] Motrin 2011-09-13 16:53:00 No Carmen Flores Berenice 300 mg, 1.5 tab, Route: PO, Drug form: TAB, Q6H, PRN Pain, Start date: 09/13/11 11:53:00, Duration: 30 day, Stop date: 10/13/11 11:52:00 [facility] 11:48:00 No Milka Perez on 160 mg, 2 tab, Route: PO, Drug form: CHEWTAB, Q6H, PRN Gas, Start date: 09/13/11 6:48:00, Duration: 30 day, Stop date: 10/13/11 6:47:00 [facility] morphine 1 mg/ml BUSINESS EDITOR (30 mg/30 mL) INJ Syringe 30 mg 09-12 01:30:00 No Milka Lu 30 mg , 30 mL, Route: IV, BUSINESS EDITOR Dose: 1 mg, BUSINESS EDITOR Lockout: 10 minutes, Continuous Basal Rate: 0.5 mg, 4 Hour Limit (In MG): 32, Drug Form: INJ, Continuous, Start date: 09/12/11 20:30:00, Duration: 30 day, Stop date: 10/12/11 20:29:00 [facility] naloxone 2011-09-13 01:17:00 No Seyda Smita GoodSam 0.4 mg, 1 mL, Route: IV, Drug form: INJ, PRN, PRN Narcotic Reversal, Start date: 09/12/11 20:17:00, Duration: 30 day, Stop date: 10/12/11 20:16:00 [facility] ondansetron 2011-09-13 00:42:00 No Milka Hall ington 4 mg, 2 mL, Route: IVP, Drug form: INJ, Q6H, PRN Nausea & Vomiting, Start date: 09/12/11 19:42:00, Duration: 30 day, Stop date: 10/12/11 19:41:00 [facility] zolpidem 2011-09-13 00:42:00 No Ruddy Gracia 5 mg, 1 tab, Route: PO, Drug form: TAB, Bedtime, PRN Insomnia, Start date: 09/12/11 19:42:00, Duration: 30 day, Stop date: 10/12/11 19:41:00 [facility] promethazine 2011-09-13 00:42:00 No Milka Fuentes nington 12.5 mg, 0.5 mL, Route: IM, Drug form: INJ, Q4H, PRN Nausea & Vomiting, Start date: 09/12/11 19:42:00, Duration: 30 day, Stop date: 10/12/11 19:41:00 [facility] diphenhydrAMINE 2011-09-13 00:42:00 No Ruddy Auguste 25 mg, 1 cap, Route: PO, Drug form: CAP, Bedtime, PRN Insomnia, Start date: 09/12/11 19:42:00, Duration: 30 day, Stop date: 10/12/11 19:41:00 [facility] docusate 2011-09-13 00:42:00 No Ruddy Gracia 100 mg, 1 cap, Route: PO, Drug form: CAP, BID, PRN Constipation, Start date: 09/12/11 19:42:00, Duration: 30 day, Stop date: 10/12/11 19:41:00 [facility] Saline Flush 0.9% 2011-09-13 00:42:00 No Ruddy estevez 5 ml, Route: IVP, Drug Form: INJ, PRN, PRN Line Flush, Start date: 09/12/11 19:42:00, Duration: 30 day, Stop date: 10/12/11 19:41:00 [facility] flumazenil 2011-09-12 23:47:00 No Magda-Fernández Raegan Leo 0.2 mg, 2 mL, Route: IVP, Drug form: INJ, PRN, PRN Benzodiazepine Reversal, Initial dose, Start date: 09/12/11 18:47:00, Duration: 30 day, Stop date: 10/12/11 18:46:00 [facility] naloxone 2011-09-12 23:47:00 No Magda-Fernández Raegan Leo 0.04 mg, 0.1 mL, Route: IVP, Drug form: INJ, Q2MIN, PRN Narcotic Reversal, Start date: 09/12/11 18:47:00, Duration: 8 doses or times, Stop date: Limited # of times [facility] ondansetron 2011-09-12 23:47:00 No Magda-Fernández Raegan Pha m 4 mg, 2 mL, Route: IVP, Drug form: INJ, ONCE, PRN Nausea & Vomiting, Start date: 09/12/11 18:47:00 [facility] morphine Sulfate 2011-09-12 23:47:00 No Magda-Fernández Phuon g Leo 2 mg, 0.5 mL, Route: IVP, Drug form: INJ, Q5Min, PRN Pain Score 4-6, Start date: 09/12/11 18:47:00, Duration: 8 doses or times, Stop date: Limited # of times [facility] cefazolin 2011-09-12 21:00:00 No Carmen Ng 1 gm, Route: IVPB, Drug form: PDR/INJ, ONCALL, Start date: 09/12/11 16:00:00, Duration: 30 day, Stop date: 10/12/11 15:59:00 Iván Gan Dilaudid 2011-09-12 16:56:00 No Nedrabethany Lucasmarie thornton 1 mg, Route: IV, ONCE, Priority: STAT, Start date: 09/12/11 11:56:00, Stop date: 09/12/11 11:56:00 [facility] Sodium Chloride 0.9% (Bolus) IV 1,000 mL 2011-09-12 13:26: 00 No Nedra Hong Bessie 1,000 mL, Rat e: 1,000 ml/hr, Infuse over: 1 hr, Route: IV, Total Volume: 1,000, Bolus Dose, Priority: STAT, Start date: 09/12/11 8:26:00, Duration: 1 doses or times, Stop date: 09/12/11 9:25:00 [facility] morphine Sulfate 2011-09-12 12:39:00 No Nedra gillis Akermelinda 6 mg, Route: IVP, ONCE, Priority: STAT, Start date: 09/12/11 7:39:00, Stop date: 09/12/11 7:39:00 [facility] ondansetron 2011-09-12 12:11:00 No Shruti Y Takenaka 4 mg, Route: IVP, Drug form: INJ, ONCE, Priority: STAT, Start date: 09/12/11 7:11:00, Stop date: 09/12/11 7:11:00 [facility] morphine Sulfate 2011-09-12 12:11:00 No Shruti Y Takena ka 4 mg, Route: IVP, ONCE, Priority: STAT, Start date: 09/12/11 7:11:00, Stop date: 09/12/11 7:11:00 [facility] Sodium Chloride 0.9% IV 1,000 mL 2011-09-12 12:10:00 No Shruti Y Takenaka 1,000 mL, Rate: 125 ml/hr, I nfuse over: 8 hr, Route: IV, Dosing Weight 68.2 kg, Total Volume: 1,000, Start date: 09/12/11 7:10:00, Duration: 30 day, Stop date: 10/12/11 7:09:00 [facility] Vital Signs Vital Name Observation Time Observation Value Comments Source Oxygen saturation by Pulse oximetry 2020-03-10 10:45:00 100 /min [facility] Weight 2020-03-10 10:45:00 191.13 [lb_av] [facility] BMI (Body Mass Index) 2020-03-10 10:45:00 32.8 kg/m2 [facility] Systolic (mm Hg) 2018-12-25 19:03:00 [facility] Diastolic (mm Hg) 2018-12-25 19:03:00 [facility] Heart Rate 2018-12-25 19:03:00 [facility] Respitory Rate 2018-12-25 19:03:00 [facility] Temperature Oral (F) 2018-12-25 19:03:00 98.0 F [facility] Height 2018-12-25 19:03:00 165.1 cm [facility] Weight 2018-12-25 19:03:00 [facility] BMI Calculated 2018-12-25 19:03:00 [facility] Weight 2018-07-11 16:00:00 [facility] BMI Calculated 2018-07-11 16:00:00 [facility] Height 2018-07-11 16:00:00 165.1 cm [facility] Temperature Oral (F) 2018-07-11 16:00:00 98.2 F [facility] Systolic (mm Hg) 2018-07-11 16:00:00 [facility] Diastolic (mm Hg) 2018-07-11 16:00:00 [facility] Respitory Rate 2018-07-11 16:00:00 [facility] Heart Rate 2018-07-11 16:00:00 [facility] Weight 2016-08-04 13:25:00 [facility] BMI Calculated 2016-08-04 13:25:00 [facility] Height 2016-08-04 13:25:00 162.56 cm [facility] Heart Rate 2016-08-04 13:25:00 [facility] Respitory Rate 2016-08-04 13:25:00 [facility] Temperature Oral (F) 2016-08-04 13:25:00 98.4 F [facility] Systolic (mm Hg) 2016-08-04 13:25:00 [facility] Diastolic (mm Hg) 2016-08-04 13:25:00 [facility] Systolic (mm Hg) 2015-12-23 08:41:00 [facility] Diastolic (mm Hg) 2015-12-23 08:41:00 [facility] Respitory Rate 2015-12-23 08:41:00 [facility] Heart Rate 2015-12-23 08:41:00 [facility] Systolic (mm Hg) 2015-12-23 06:00:00 [facility] Diastolic (mm Hg) 2015-12-23 06:00:00 [facility] Height 2015-12-23 04:14:00 162.56 cm [facility] Weight 2015-12-23 04:14:00 [facility] BMI Calculated 2015-12-23 04:14:00 [facility] Temperature Oral (F) 2015-12-23 04:14:00 98.5 F [facility] Systolic (mm Hg) 2015-12-23 04:14:00 Gumrao [facility] Diastolic (mm Hg) 2015-12-23 04:14:00 [facility] Respitory Rate 2015-12-23 04:14:00 [facility] Heart Rate 2015-12-23 04:14:00 [facility] Systolic (mm Hg) 2015-05-14 18:00:00 [facility] Diastolic (mm Hg) 2015-05-14 18:00:00 [facility] Respitory Rate 2015-05-14 18:00:00 [facility] Heart Rate 2015-05-14 18:00:00 [facility] Temperature Oral (F) 2015-05-14 18:00:00 99 F [facility] Weight 2015-05-14 14:10:00 [facility] BMI Calculated 2015-05-14 14:10:00 [facility] Height 2015-05-14 14:10:00 162.56 cm [facility] Temperature Oral (F) 2015-05-14 14:10:00 98.2 F [facility] Heart Rate 2015-05-14 14:10:00 [facility] Respitory Rate 2015-05-14 14:10:00 [facility] Systolic (mm Hg) 2015-05-14 14:10:00 [facility] Diastolic (mm Hg) 2015-05-14 14:10:00 [facility] Systolic (mm Hg) 2014-11-20 18:25:00 [facility] Diastolic (mm Hg) 2014-11-20 18:25:00 [facility] Temperature Oral (F) 2014-11-20 18:25:00 98.0 F [facility] Heart Rate 2014-11-20 18:25:00 [facility] Respitory Rate 2014-11-20 18:25:00 [facility] Temperature Oral (F) 2014-11-20 15:37:00 98.4 F [facility] BMI Calculated 2014-11-20 15:37:00 [facility] Respitory Rate 2014-11-20 15:37:00 [facility] Heart Rate 2014-11-20 15:37:00 [facility] Systolic (mm Hg) 2014-11-20 15:37:00 [facility] Diastolic (mm Hg) 2014-11-20 15:37:00 [facility] Height 2014-11-20 15:37:00 162.56 cm [facility] Weight 2014-11-20 15:37:00 [facility] Respitory Rate 2014-11-18 05:08:00 [facility] Temperature Oral (F) 2014-11-18 05:08:00 98.9 F [facility] Heart Rate 2014-11-18 05:08:00 [facility] Systolic (mm Hg) 2014-11-18 05:08:00 [facility] Diastolic (mm Hg) 2014-11-18 05:08:00 [facility] BMI Calculated 2014-11-18 03:54:00 [facility] Height 2014-11-18 03:54:00 162.56 cm [facility] Weight 2014-11-18 03:54:00 [facility] Temperature Oral (F) 2014-11-18 03:54:00 100.0 F [facility] Heart Rate 2014-11-18 03:54:00 [facility] Respitory Rate 2014-11-18 03:54:00 [facility] Systolic (mm Hg) 2014-11-18 03:54:00 [facility] Diastolic (mm Hg) 2014-11-18 03:54:00 [facility] Respitory Rate 2014-05-24 16:18:00 [facility] Systolic (mm Hg) 2014-05-24 16:18:00 [facility] Diastolic (mm Hg) 2014-05-24 16:18:00 [facility] Temperature Oral (F) 2014-05-24 16:18:00 98.4 F [facility] Heart Rate 2014-05-24 16:18:00 [facility] Heart Rate 2014-05-24 14:25:00 [facility] Diastolic (mm Hg) 2014-05-24 14:25:00 [facility] Respitory Rate 2014-05-24 14:25:00 [facility] Temperature Oral (F) 2014-05-24 14:25:00 98.1 F [facility] Systolic (mm Hg) 2014-05-24 14:25:00 [facility] Weight 2014-05-24 14:25:00 [facility] BMI Calculated 2014-05-24 14:25:00 [facility] Height 2014-05-24 14:25:00 162.56 cm [facility] Respitory Rate 2014-01-16 23:16:00 [facility] Systolic (mm Hg) 2014-01-16 23:16:00 [facility] Diastolic (mm Hg) 2014-01-16 23:16:00 [facility] Temperature Oral (F) 2014-01-16 23:16:00 98 F [facility] Heart Rate 2014-01-16 23:16:00 [facility] Systolic (mm Hg) 2014-01-16 22:32:00 [facility] Diastolic (mm Hg) 2014-01-16 22:32:00 [facility] Temperature Oral (F) 2014-01-16 22:32:00 98.2 F [facility] Heart Rate 2014-01-16 22:32:00 [facility] Respitory Rate 2014-01-16 22:32:00 [facility] Height 2014-01-16 21:17:00 162.56 cm [facility] BMI Calculated 2014-01-16 21:17:00 [facility] Weight 2014-01-16 21:17:00 [facility] Systolic (mm Hg) 2014-01-16 21:17:00 [facility] Diastolic (mm Hg) 2014-01-16 21:17:00 [facility] Temperature Oral (F) 2014-01-16 21:17:00 98.7 F [facility] Heart Rate 2014-01-16 21:17:00 [facility] Respitory Rate 2014-01-16 21:17:00 [facility] Temperature Oral (F) 2013-11-22 00:25:00 98.7 F [facility] BMI Calculated 2013-11-22 00:25:00 [facility] Height 2013-11-22 00:25:00 162.56 cm [facility] Weight 2013-11-22 00:25:00 [facility] Diastolic (mm Hg) 2013-11-22 00:25:00 [facility] Heart Rate 2013-11-22 00:25:00 [facility] Respitory Rate 2013-11-22 00:25:00 [facility] Systolic (mm Hg) 2013-11-22 00:25:00 [facility] Heart Rate 2011-09-14 12:52:00 [facility] Systolic (mm Hg) 2011-09-14 12:52:00 [facility] [place] Respitory Rate 2011-09-14 12:52:00 [facility] Diastolic (mm Hg) 2011-09-14 12:52:00 [facility] [place] Temperature Oral (F) 2011-09-14 12:52:00 97.2 F [facility] Diastolic (mm Hg) 2011-09-14 09:05:00 [facility] [place] Respitory Rate 2011-09-14 09:05:00 [facility] Systolic (mm Hg) 2011-09-14 09:05:00 [facility] [place] Temperature Oral (F) 2011-09-14 09:05:00 98.3 F [facility] Heart Rate 2011-09-14 09:05:00 [facility] Diastolic (mm Hg) 2011-09-14 04:43:00 [facility] Systolic (mm Hg) 2011-09-14 04:43:00 Gumaro caroline [facility] Respitory Rate 2011-09-14 04:43:00 [facility] Heart Rate 2011-09-14 04:43:00 [facility] Temperature Oral (F) 2011-09-14 04:43:00 98.6 F [facility] Height 2011-09-13 00:45:00 162.56 cm [facility] Weight 2011-09-13 00:45:00 [facility] Weight 2011-09-12 12:00:00 [facility] Height 2011-09-12 12:00:00 162.56 cm [facility] Procedures Procedure Date / Time Performed Performing Clinician [facility] Ovari[facility] Tonsillectomy [facility] [place] Plan of Care Planned Activity Planned Date Details Comments Source Future Scheduled Test 2019-12-08 00:00:00 INFLUENZA VACCINE [code = INFLUENZA VACCINE] Conner Jiist Future Scheduled Test 2010 00:00:00 Screening for ria gnant neoplasm of cervix (procedure) [code = 967721400] [facility] Instructions Upper Respiratory Infection - Adult [facility] Instructions Viral Syndrome - Adult [facility] Encounters Start Date/Time End Date/Time Encounter Type Admission Type Attendi [facility] Facility Care Department Encounter ID Source 2020-03-10 11:19:00 2020-03-10 12:00:00 Departed Emergency Room [facility] [id number] [facility] 2019-08-24 13:30:00 2019-08-24 13:30:00 Outpatient Syeda Herrera [facility] [id number] 2018-12-25 14:10:00 2018-12-25 23:59:59 Outpatient [facility] [id number] 2018-08-01 09:20:00 2018-08-01 09:20:00 [id number] 2018-07-11 10:00:00 2018-07-11 23:59:59 Outpatient [facility] [id number] 2018-05-11 09:00:00 2018-05-11 09:00:00 Outpatient Smita Henderson [place] [id number] 2016-08-04 08:15:00 2016-08-04 11:06:00 Outpatient Lizette Nicholas [facility] [id number] 2015-12-22 23:09:00 2015-12-23 03:58:00 Outpatient Adrián Desai [facility] [id number] 2015-05-14 08:08:00 2015-05-14 12:11:00 Outpatient Nils Starks [facility] MHSE MHSE [id number] 2014-11-20 10:35:00 2014-11-20 13:54:00 Outpatient Cely Carvajal SE [facility]SE [id number] 2014-11-17 22:42:00 2014-11-18 00:11:00 Outpatient Dipesh Anderson SE [facility] [id number] 2014-05-24 08:19:00 2014-05-24 10:19:00 Outpatient Dipesh Anderson IE IE [id number] 2014-01-16 16:13:00 2014-01-16 18:19:00 Outpatient Loc Kearns IE IE [id number] 2013-11-21 18:59:00 2013-11-21 22:15:00 Outpatient Zena Meade IE IE [id number] Results Test Description Test Time Test Comments Results Result Comments Source URINE AND STOOL 2015-12-23 06:25:00 Negative (12/23/15 1:25 AM) [facility] URINE AND STOOL 2015-12-23 06:25:00 Negative (12/23/15 1:25 AM) [facility] URINE AND STOOL 2015-12-23 06:25:00 Trace *ABN*(12/23/15 1: 25 AM) [facility] URINE AND STOOL 2015-12-23 06:25:00 0.2 [facility] URINE AND STOOL 2015-12-23 06:25:00 Test Item UA pH (test code = UA pH) 6.0 1 5.0-8.0 [facility] ZKCHE3112-39-44 06:25:00Negative (12/23/15 1:25 AM) [facility] [id number] 06:25:00Negative (12/23/15 1:25 AM) [facility] YJMBX5083-37-54 06:25:00Negative *NA*(12/23/15 1:25 AM) [facility] THFKU4545-20-06 06:25:00Negative *NA*(12/23/15 1:25 AM) [facility] ACMES9103-42-30 06:25:00Clear (12/23/15 1:25 AM) [facility] MIQVN4506-99-64 06:25:00Yellow *NA*(12/23/15 1:25 AM) [facility] NAXOP5024-55-51 06:25:00* Test Item Value Reference Range Interpretation Comments UA Spec Grav (test code = UA Spec Grav) 1.025 1 [facility] AEUY6620-05-92 06:25:00Negative (12/23/15 1:25 AM)[facility]annCHEM FWZWT3254-29-67 06:04:44659Pzcwiers HermannCHEM UEPVQ3891-51-60 06:04:000.9[facility]annCHEM YMFKA1193-91-70 06:04:004.3[facility]annCHEM DFPKJ9237-44-66 06:04:0010.9[facility]annCHEM EFXKI2584-59-86 06:04:0014 [facility]annCHE[facility] XVLQK3690-36-85 06:04:92184Lelvbcsm HermannCHEM PANEL 2015-12-23 06:04:0019[facility]annCHEM ZJTJW1160-34-18 06:04:008.0[facility]annCHEM KBZYU6240-48-70 06:04:003.9[facility]annCHEM XBNQO7906-72-02 06:04:84454Wbrautfz HermannCHEM MEZOB4425-91-86 06:04:0026[facility]annCHEM OSKRC7317-29-10 06:04:000.72[facility]annCHEM UDDWU0769-90-98 06:04:24043 [facility]annCHE[facility] ZVJKV6646-61-23 06:04:0010[facility]annCHEM PANEL 2015-12-23 06:04:0074[facility]annCHEM AZMLU1129-04-84 06:04:0090[facility]annCHEM JLTOR7398-95-26 06:04:003.7[facility]annCHEM JEKXL3210-10-14 06:04:0015[facility]annCHEM PTZJC6500-29-73 06:04:008.9[facility]annCHEM PNIPB7828-79-83 06:04:000.3[facility] XvhfayzNHALFXUPUX4421-83-97 06:04:001.5 [facility] EjkzhcmZAYLJWRTOC6315-30-68 06:04:0010.1[facility] HermannHEMATOLOGY 2015-12-23 06:04:0038.1[facility] MwnggijCYTUSXJWEI0751-92-05 06:04:0049.7[facility] VkmorzvXEESZSTLNB3888-54-27 06:04:000.1[facility] AksogqnHPJKYKLRGC2155-29-82 06:04:000.5[facility] SrllocoTKUBGNMLTU1009-21-59 06:04:001.7[facility] ELSLUAGJME6358-85-53 06:04:002.2[facility] AxeemsnUNAMAZFGGK8463-01-98 06:04:000.6 [facility] AptohjpTWKURXBXLJ9804-48-21 06:04:009.6[facility] HermannHEMATOLOGY 2015-12-23 06:04:78524Foljvror OujyjfxBZRHHGWJCJ6521-12-45 06:04:0013.6[facility] RdtokudIHZCHTKKBJ7555-99-05 06:04:0032.6[facility] NebzcezJUEAHGGJXI3775-91-02 06:04:00* Test Item Value Reference Range Interpretation Comments MCH (test code = MCH) 27.6 pg 27.0-31.0 [facility] XolonhyOOBKHKSAEB8444-81-79 06:04:0084.7[facility] HermannHEMATOLOGY 2015-12-23 06:04:0037.7[facility] IaykewpEOPSWPHPNW4184-69-12 06:04:0012.3[facility] ManadbtPZWKHOJYED7575-60-61 06:04:004.45[facility] VvggevnTXSRMLEVKT8989-95-86 06:04:004.5[facility] HermannMOLECULAR QREMFAWGZA7460-50-74 16:58:00Negative *NA*(05/14/15 10:58 AM)[facility]annMOLECULAR UYNSHYIWWS4184-10-33 16:58:00 Endocervix *NA*(05/14/15 10:58 AM)[facility] HvgrpezKWZJMNFYHDRL3728-34-08 14:45:00 9.5[facility] EfnjbpjEONPSOISFYKL4434-79-03 14:45:61727Wofqlzoy [place] WRYIRTEJWVEO5742-10-12 14:45:0027[facility] SwrxltcBRCGYCPSDKOT5108-61-05 14:45:00 9.0[facility] QwiaqwjQTSOJMWAJPQZ3412-26-98 14:45:009[facility] HermannELECTROLYTES 2015-05-14 14:45:0088[facility] SlplfgsZGHTQSRAVHBG7316-70-06 14:45:000.70[facility] EfbmoniTTPNONRBNQQK1304-17-72 14:45:004.5[facility] TjcpakjZIHCSYUIIORL2668-81-24 14:45:50923Ugacthct YauczqzWXYQLRECJYFA9188-20-86 14:45:19109Jmrjcxmc Wheeler ZKCBJPPBEJ8558-31-13 14:45:00* Test Item Value Reference Range Interpretation Comments MCH (test code = MCH) 27.8 pg 27.0-31.0 [facility] DsitiirGLLDRYWBYJ5735-79-60 14:45:0086.1[facility] HermannHEMATOLOGY 2015-05-14 14:45:0038.3[facility] KerzwlhXCGGRGCQRA6902-90-59 14:45:0032.3[facility] VsyiyvoGYUPOTGTVE5074-83-77 14:45:0013.4[facility] ZwbhiofCUCUSNSPMN8689-85-14 14:45:009.4[facility] KgtguiqWILLLPAPQX5531-18-79 14:45:02543Pyyivwjh [place] HLLXYIJXDN2204-58-80 14:45:004.45[facility] FxxwwqtTNYBLCNSEV3486-44-83 14:45:00 4.6[facility] NjydypxOYWPRBACIF5892-59-30 14:45:0012.4[facility] HermannHEMATOLOGY 2015-05-14 14:45:000.4[facility] SinzsamBIGHBQURNT6444-78-00 14:45:000.1[facility] MzeukawYDMSQUZBAJ5794-09-57 14:45:0056.0[facility] AoosesgPLWSHJQEZR1567-10-43 14:45:0033.6[facility] QewdyfwUCWXCMYUZJ6498-52-52 14:45:008.6[facility] ZULSIRHQQC1400-67-72 14:45:001.1[facility] DkldlguHBGEBJQPOV6101-51-64 14:45:002.6 [facility] FpxhtjxEWXVGPIIHV0028-00-29 14:45:000.7[facility] HermannHEMATOLOGY 2015-05-14 14:45:001.6[facility] JWSKZ8261-45-04 14:45:00None Seen (05/14/15 8:45 AM)[facility] VOBIT5851-13-06 14:45:00None Seen (05/14/15 8:45 AM)[facility] PPSWL7565-74-54 14:45:00Negative (05/14/15 8:45 AM)[facility] GRVQB6045-51-74 14:45:00Yellow *NA*(05/14/15 8:45 AM)[facility] WCOOM3358-63-37 14:45:00Clear (05/14/15 8:45 AM)[facility] RKJTV6309-30-89 14:45:00Negative *NA*(05/14/15 8:45 AM)[facility] UTPZB2662-93-93 14:45:00Negative (05/14/15 8:45 AM)[facility] GTGZO5338-22-44 14:45:00* Test Item Value Reference Range Interpretation Comments UA Spec Grav (test code = UA Spec Grav) 1.020 1 [facility] IDUCN2290-47-35 14:45:00Negative (05/14/15 8:45 AM) [facility] OLAPA8004-00-17 14:45:000.2[facility] IBFIE7939-28-67 14:45:00* Test Item Value Reference Range Interpretation Comments UA pH (test code = UA pH) 7.0 1 5.0-8.0 [facility] KYQA7641-01-91 14:45:00Negative (05/14/15 8:45 AM)[facility] IsbgtiuOOCBABRWWWUV8070-66-67 16:25:009.0[facility] GggqrvtEIGHVAOWZGWJ3462-51-32 16:25:33176Uduzvzph ZfnjxiqNGQYCGAXPMSN1448-11-06 16:25:0026[facility] HSOSMXUDHDNY7953-25-47 16:25:008.8[facility] GblplbvXCXZRLBEZEQN0409-23-35 16:25:004.0[facility] UehmbfxIVSZTULFKHHN9352-68-79 16:25:05002Wofxdxht [facility] LZXLALCBBHVY6498-77-14 16:25:004[facility] ZrizwjqOGWHSYIWHYCF5949-24-42 16:25:00 0.8[facility] NmyzoxmLPUSHBSIJPIF3065-34-81 16:25:38999Htvjnxms [place] GCQIMGIHOLOF0430-25-89 16:25:0092[facility] EetwkndIDVAITEYOZ1476-32-16 16:25:00 9.3[facility] YiaxtajTLBAXUNNBY7028-25-34 16:25:92163Ynmkkyws HermannHEMATOLOGY 2014-11-20 16:25:00* Test Item Value Reference Range Interpretation Comments MCH (test code = MCH) 25.7 pg 27.0-31.0 [facility] RsfwohkYSAXNYXOWU8611-72-25 16:25:0082.0[facility] HermannHEMATOLOGY 2014-11-20 16:25:0031.3[facility] EjjfnzzYHZXXEZBIM0824-42-56 16:25:0016.7[facility] HjndlniVOGNREZNYB0139-20-77 16:25:004.0[facility] TvypeupLDQTKOYTVG1027-21-80 16:25:004.27[facility] YtfghgvWKKZMQYBUT8010-24-39 16:25:0035.0[facility] SPNQHHPTIO7965-20-53 16:25:0011.0[facility] MerutvrVOTSKNWIWI1645-22-31 16:25:00 1.9[facility] HjzgrczNGNMYMQTIV3053-76-90 16:25:001.7[facility] HermannHEMATOLOGY 2014-11-20 16:25:000.3[facility] CspoillQEKEHJVRSS6769-48-18 16:25:000.1[facility] KxentbzBOAOOAZBAO5760-14-47 16:25:000.6[facility] AbjgfowKYJDDOWLPR0430-70-29 16:25:0047.0[facility] WjdkrgpYYRZIJUXYT8098-04-84 16:25:0042.5[facility] VCIURNLRTG1750-81-28 16:25:001.4[facility] LxowbwbIWRHFUYESG5666-20-19 16:25:008.5 [facility] JNGBI6582-21-04 16:25:00Negative (11/20/14 11:25 AM) [facility] MELAD4643-77-35 16:25:00Negative (11/20/14 11:25 AM) [facility] JXZWJ3358-57-45 16:25:000.2[facility] HUQYL8481-86-02 16:25:00Large *ABN*(11/20/14 11:25 AM)[facility] MKVFO1988-58-81 16:25:00Negative *NA*(11/20/14 11:25 AM)[facility] ZQDPN3822-63-34 16:25:00Negative *NA*(11/20/14 11:25 AM)[facility] GBFIV1620-50-60 16:25:00Yellow *NA*(11/20/14 11:25 AM)[facility] VMPVJ1910-17-75 16:25:00* Test Item Value Reference Range Interpretation Comments UA Spec Grav (test code = UA Spec Grav) 1.010 1 [facility] BMPOK4344-90-22 16:25:00Clear (11/20/14 11:25 AM) [facility] NAZAD0139-52-77 16:25:00* Test Item Value Reference Range Interpretation Comments UA pH (test code = UA pH) 8.5 1 5.0-8.0 [facility] VTQML2278-38-36 16:25:00Negative (11/20/14 11:25 AM) [facility] SEXN3446-70-43 16:25:00Negative (11/20/14 11:25 AM)[facility]annMOLECULAR AHHCTKBZUA9086-36-10 04:45:00Negative *NA*(11/17/14 11:45 PM) [facility]annMOLECULAR UZUGMCIZZU3849-96-06 04:45:00Endocervix *NA*(11/17/14 11:45 PM)[facility]annMOLECULAR OIEUBYWWXW3066-12-51 04:45:00Negative *NA*(11/17/14 11:45 PM)[facility]annMOLECULAR WMJRXBKPEP0239-44-91 04:45:00 Endocervix *NA*(11/17/14 11:45 PM)[facility] LtuiuwaGUXHBSSJYT7627-24-67 03:57:00 148[facility] OksbxdbEFBGBTSFLW3657-04-65 03:57:008.7[facility]annHEMATOLOGY 2014-11-18 03:57:0081.1[facility] QzusuasFZYLKQHJMB2483-69-36 03:57:0034.6[facility] XgpjvrzANDUJLAEBL9375-80-77 03:57:0011.1[facility] CriakgyLAODTYXXGU6883-76-07 03:57:004.26[facility] YamijuiOMDKPMWXGA3501-11-01 03:57:0017.2[facility] ULBZRXRDKN8114-81-32 03:57:00* Test Item Value Reference Range Interpretation Comments MCH (test code = MCH) 25.9 pg 27.0-31.0 [facility] JlerazyLRIHEHRNSW1319-60-95 03:57:0032.0[facility]annHEMATOLOGY 2014-11-18 03:57:006.4[facility] GdcrixwAAZPGWORBQ8319-60-65 03:57:000.1[facility] GkkghdfDVZEESZFQY0915-24-07 03:57:0047.9[facility] YkmeqiyJRSUDSFLWR9093-25-18 03:57:0042.4[facility] UztijesDJFHJQVKYG5268-92-39 03:57:003.1[facility] VZOIAGTXXK3218-43-48 03:57:002.7[facility] KicetunADEYHEWGBN1913-22-22 03:57:000.5 [facility] TslfiubPFFRWOTXUM8703-43-90 03:57:000.5[facility]annHEMATOLOGY 2014-11-18 03:57:008.3[facility] FcebsoiSGNUGDYQWE7933-65-18 03:57:000.9[facility] LMBER5016-74-10 03:57:00* Test Item Value Reference Range Interpretation Comments UA pH (test code = UA pH) 6.0 1 5.0-8.0 [facility] DGYKP6677-88-84 03:57:00Negative (11/17/14 10:57 PM) [facility] OXATC5146-94-70 03:57:00Negative (11/17/14 10:57 PM) [facility] ELTJN9364-25-89 03:57:002.0[facility] PLTEK4078-82-97 03:57:00Large *ABN*(11/17/14 10:57 PM)[facility] TFCGC7318-04-26 03:57:00Negative *NA*(11/17/14 10:57 PM)[facility] PHPPN9217-35-45 03:57:00Trace *ABN*(11/17/14 10:57 PM)[facility] EBLQW7015-46-69 03:57:00Negative (11/17/14 10:57 PM)[facility] HGEBF1405-42-55 03:57:00Yellow *NA*(11/17/14 10:57 PM)[facility] ZJLTE2628-73-45 03:57:00* Test Item Value Reference Range Interpretation Comments UA Spec Grav (test code = UA Spec Grav) 1.020 1 [facility] RVZPH9345-73-76 03:57:00Slight Cloudy (11/17/14 10:57 PM)[facility] ZYBN7230-11-36 03:57:00Negative (11/17/14 10:57 PM) [facility] OAUSD7935-92-27 14:49:00Negative (05/24/14 8:49 AM) [facility] YGXID3566-86-32 14:49:00Negative *NA*(05/24/14 8:49 AM) [facility] IHQLQ0081-83-04 14:49:00Negative *NA*(05/24/14 8:49 AM) [facility] BLCJT3190-65-94 14:49:00Small *ABN*(05/24/14 8:49 AM) [facility] TOTVN0844-03-75 14:49:00Negative (05/24/14 8:49 AM) [facility] WCGYG9245-73-04 14:49:00* Test Item Value Reference Range Interpretation Comments UA pH (test code = UA pH) 6.5 1 5.0-8.0 [facility] KMRNO6972-12-20 14:49:00Negative (05/24/14 8:49 AM) [facility] QGRDL3545-74-32 14:49:00Negative (05/24/14 8:49 AM) [facility] IEOLW3961-46-83 14:49:002.0[facility] YBGCL8577-29-80 14:49:00* Test Item Value Reference Range Interpretation Comments UA Spec Grav (test code = UA Spec Grav) 1.020 1 [facility] TLIVI2066-16-92 14:49:00Yellow *NA*(05/24/14 8:49 AM) [facility] TTTMP6722-76-43 14:49:00Clear (05/24/14 8:49 AM) [facility]annCARDIAC ZRISCDR8959-86-59 14:31:00<1.4[facility] HermannCARDIAC IRYYZOU9145-40-50 14:31:00<0.02[facility] HermannCARDIAC DHMEPKC4041-72-88 14:31:0036[facility] HermannCARDIAC OSKACKK6255-57-84 14:31:00<0.5[facility] CHEM AVYUZ5586-84-47 14:31:88378Vephlvws HermannCHEM BTXYG1410-64-04 14:31:00 12.3[facility] HermannCHEM QHWNS5181-32-18 14:31:008[facility] HermannCHEM PANEL 2014-05-24 14:31:000.4[facility] HermannCHEM KUQKJ7292-72-84 14:31:006.7[facility] HermannCHEM DEUCW7016-94-70 14:31:0011[facility] HermannCHEM CILXU8650-23-75 14:31:08861Fvqekfvm HermannCHEM KUNNM9041-15-84 14:31:008.8[facility] HermannCHEM SFYDA4225-60-26 14:31:0022[facility] HermannCHEM KLFOF3558-21-13 14:31:003.3 [facility]annCHEM LOFMU7472-10-16 14:31:000.5[facility] HermannCHEM PANEL 2014-05-24 14:31:97626Xgafntbh HermannCHEM XNNQV9857-35-94 14:31:0086[facility] HermannCHEM VDSEB6648-20-35 14:31:004[facility]annCHEM ZWVYY9657-19-21 14:31:004.1[facility] HermannCHEM FOCLP3973-58-82 14:31:000.6[facility] HermannCHEM QYISU0100-65-84 14:31:002.6[facility] HermannCHEM NTQJD4658-96-66 14:31:0091 [facility]annCHEM GVBRB1814-34-64 14:31:0011[facility]annHEMATOLOGY 2014-05-24 14:31:0064.7[facility] CwatsgnVVVUIJSKBR6464-29-06 14:31:0012.6[facility] GguepabJKSUGIVQXI3531-02-99 14:31:0022.1[facility] AwuxvnoBRNSPZVAWD0079-50-19 14:31:000.3[facility] WjplbmwLYKUIEHBLZ5922-86-26 14:31:001.2[facility] INDPJGOQBJ0126-75-98 14:31:003.5[facility] GlizovgEDWVIDDFPC9933-31-08 14:31:000.3 [facility] AczqdwnWLINBSETFA7166-93-54 14:31:000.7[facility] HermannHEMATOLOGY 2014-05-24 14:31:003.39[facility] RmtueprEKIEDTEGHA3491-53-94 14:31:009.7[facility] FucqdnfOSUAGFWYAL8837-94-06 14:31:005.3[facility] DmnihndCICYTXTBTA3010-49-86 14:31:96220Epfvcmtp DjidqvbBBJRCQQEUU0388-11-26 14:31:0013.0[facility] HSAQYWWZMR8994-79-92 14:31:00* Test Item Value Reference Range Interpretation Comments MCH (test code = MCH) 28.6 pg 27.0-31.0 [facility] CglymdqICFMJDCCID7560-65-09 14:31:0029.6[facility] HermannHEMATOLOGY 2014-05-24 14:31:0032.8[facility] XtotrseBWWIUSPGTZ9870-39-93 14:31:0087.3[facility] MlvawjlGLVJOIAQAZ5533-40-06 14:31:0010.0[facility] SuvsyxlPNAIBFDETS5576-66-66 14:31:001.04[facility] HermannCHEM LZZDT1396-86-51 21:51:81916Kmozybnq HermannCHEM FKIRV6971-98-19 21:51:30622Cvdouizp HermannCHEM HDORJ7355-35-81 21:51:009.3 [facility]annCHEM BXJFF3557-70-18 21:51:0024[facility] HermannCHEM PANEL 2014-01-16 21:51:003.9[facility] HermannCHEM SSTTL4973-69-54 21:51:004[facility] HermannCHEM IQRXF4239-99-06 21:51:007.6[facility] HermannCHEM THNNI1304-55-12 21:51:000.2[facility] HermannCHEM LRXVY9770-55-08 21:51:000.7[facility] HermannCHEM CYKUE0958-45-56 21:51:007[facility] HermannCHEM EZXSG5984-39-23 21:51:0059[facility] HermannCHEM ZPZSB3257-29-34 21:51:003.5[facility] HermannCHEM INYHF9060-59-51 21:51:0012Mem[facility] HermannCHEM IWNON5297-50-40 21:51:26513Lrtcdtin HermannCHEM OCZBY4993-89-51 21:51:0092[facility] HermannCHEM DHTLT8246-11-07 21:51:0012.9 [facility]annCHEM EXFSC4508-81-54 21:51:0010[facility] HermannCHEM PANEL 2014-01-16 21:51:004.1[facility] HermannCHEM CMQMR6840-60-50 21:51:000.9[facility] DxmmbbeQCMEGNGTYU4631-92-23 21:51:0033.0[facility] VtpiswoKTVIHXCETL7652-99-24 21:51:98859Fflsjwyo EngwihyOJPPJGDHUN0015-57-55 21:51:009.7[facility] IGENKZHFVC3505-74-77 21:51:0012.5[facility] VccytamUMJIZITWSJ3502-96-91 21:51:00 37.8[facility] VpackqdAWSFQXVOEU3031-32-08 21:51:0012.5[facility] HermannHEMATOLOGY 2014-01-16 21:51:00* Test Item Value Reference Range Interpretation Comments MCH (test code = MCH) 29.2 pg 27.0-31.0 [facility] VnexhejCMDNBISQIM7822-13-23 21:51:0088.5[facility] 2014-01-16 21:51:004.27[facility] IbbztaaQWQUIZLXZA0549-50-31 21:51:006.8[facility] IymhtgaLZKCKJFEAU8058-09-67 21:51:007.5[facility] AiqmuddOAHDHUHSQT4202-79-71 21:51:0034.2[facility] NvmgnkwZUDUDMVQKJ8194-75-43 21:51:003.9[facility] PRNDRYJTUA1572-94-10 21:51:002.3[facility] ElzoqlzGIMCZQUVSJ6525-50-70 21:51:000.7 [facility] FvbzzjaOXNASUXNDC1364-50-35 21:51:000.8[facility] 2014-01-16 21:51:000.1[facility] UximdbqMYUJJYJVDA2687-79-78 21:51:000.5[facility] CeuuqyyGISPZUPTPQ3791-45-89 21:51:0056.8[facility] STOOL 2014-01-16 21:50:00Negative *NA*(01/16/14 4:50 PM)[facility] ST[facility] 2014-01-16 21:50:00Negative *NA*(01/16/14 4:50 PM)[facility] ST[facility]OL 2014-01-16 21:50:00Slight Cloudy (01/16/14 4:50 PM)[facility] VAQDW2763-08-78 21:50:00Yellow *NA*(01/16/14 4:50 PM)[facility] YCIBZ3362-10-62 21:50:00Negative (01/16/14 4:50 PM)[facility] UVQCK1448-79-13 21:50:00* Test Item Value Reference Range Interpretation Comments UA pH (test code = UA pH) 6.5 1 5.0-8.0 [facility] BRBRH5124-37-59 21:50:00Negative (01/16/14 4:50 PM) [facility] INOKJ0592-07-96 21:50:00* Test Item Value Reference Range Interpretation Comments UA Spec Grav (test code = UA Spec Grav) 1.025 1 [facility] TYTEQ3139-51-28 21:50:00Small *ABN*(01/16/14 4:50 PM) [facility] AQQGL7881-76-31 21:50:002.0[facility] ZMXPC4521-58-45 21:50:00Negative (01/16/14 4:50 PM)[facility] DELCT6844-74-68 21:50:00Negative (01/16/14 4:50 PM)[facility] CHEM 2014-01-16 21:50:00Positive *ABN*(01/16/14 4:50 PM)[facility] 2011-09-13 09:05:0066.0[facility] WpxhyhmUGFPYBEZMV9797-12-01 09:05:000.0[facility] JxvwkhvDOCSKVVKXR6963-17-11 09:05:0010.4[facility] EkuacjbUVJCYZBVYP2270-65-76 09:05:000.2[facility] VzudjvhQRKMHUDTAC6623-72-98 09:05:005.6[facility] LRCSAFNGAH6940-42-91 09:05:002.0[facility] RhsfqbjEWWGCIEAZN4956-37-22 09:05:000.0 [facility] IccypnhVSLMDHMXCH4740-72-61 09:05:000.9[facility]HE[facility]OLOGY 2011-09-13 09:05:000.0[facility] PxvnhkfZDATQVERJC3835-92-97 09:05:0023.4[facility] KgddjypSBWXIRJPMD7627-72-40 09:05:003.71[facility] QrgmpjbJKPDHOACUT7566-43-32 09:05:008.5[facility] DlvjasmYTKNRCMLHG1602-88-77 09:05:0010.6[facility] ILYIICBNBN3470-40-56 09:05:0032.1[facility] VkaffkmULHZILYAHH0975-21-89 09:05:00* Test Item Value Reference Range Interpretation Comments MCH (test code = MCH) 28.8 pg 27.0-31.0 N [facility] IktkeikKLFQTEUOID0896-22-35 09:05:0086.6[facility]annHEMATOLOGY 2011-09-13 09:05:0033.2[facility] KijkumeFEXZVZZFUV6167-53-01 09:05:76175Ncrzfcry HfiexpiWJTLQNAZBZ8202-98-41 09:05:0014.8[facility] KchwvevTPYHPSDVBS0244-88-00 09:05:009.7[facility] GxgdhukHWSFWMJQLA4570-49-90 23:27:00Negative (09/12/2011 18:27:00) [facility] IfodmjhKCNCATVOSG5909-16-72 23:27:00Negative (09/12/2011 18:27:00) [facility] TMHEVCQ1913-94-10 20:54:00Negative (09/12/2011 15:54:00) [facility] TpywnruPLGQPWSDI3293-90-89 17:30:001.2[facility] MumbzllNAMUTRXUML1895-17-11 13:16:00Negative *NA*(09/12/2011 08:16:00) [facility] BzncpsvMABIFCJZJ4335-38-86 12:37:0019.5[facility] XysdbyvEUNSISRYQ9507-35-59 12:37:0018[facility] IemtrwwAEQPFTIHQ4867-52-40 12:37:009.1[facility] WQIVQKQVD1499-85-88 12:37:008[facility] BaowvmdZRPMNGJGU1031-39-79 12:37:004.5 [facility] WxmkxqaDGZPNDLIL2121-69-92 12:37:71127Fiztvpud HermannCHEMISTRY 2011-09-12 12:37:71016Ihfcubef OtkjsxoYYAYILIOO6806-24-80 12:37:58841Fgjsgnqu YrsiqlfWVRXHJZTH0831-78-59 12:37:000.8[facility] YyfgexiYTERVDLNV9794-42-28 12:37:00Negative (09/12/2011 07:37:00) [facility] PhldtkiSOXWMEJPV5525-17-70 12:37:01200Lcljbsyl HgezoujWYIYPUUUR4574-66-84 12:37:0033[facility] FPMHLTPCA8990-02-39 12:37:0092[facility] EacuovgZJCUVKTAP3730-97-90 12:37:000.1 [facility] HukvcqgPMZGDOBTZ9920-24-37 12:37:000.8[facility]annCHEMISTRY 2011-09-12 12:37:007.6[facility] PojzeiwZRUFYFNGW6712-19-15 12:37:004.1[facility] FsxzrmnNYZPPSXVA7530-29-91 12:37:003.5[facility] SkvpkhvXKAMTVBRS0802-26-93 12:37:001.2[facility] EtnaslvRQPCMEBMH1783-71-71 12:37:0029[facility] KQUFYYHBO1453-25-02 12:37:000.7[facility] MitqnbtWIPBFFQYQY6838-72-72 12:37:0013.9 [facility] GzwdheeYCODITOJPX3857-09-50 12:37:87787Nhxwjppu HermannHEMATOLOGY 2011-09-12 12:37:0084.4[facility] VomefveXDIPXOXKQZ3331-86-97 12:37:00* Test Item Value Reference Range Interpretation Comments MCH (test code = MCH) 27.9 pg 27.0-31.0 N [facility] JewrkvbENDXCMBIEJ6827-57-31 12:37:0033.1[facility]annHEMATOLOGY 2011-09-12 12:37:0036.2[facility] VevoaygPAUVEIHXSJ3141-58-20 12:37:009.9[facility] DzruoreJNURCHMJZT7157-68-95 12:37:004.29[facility] RojsyogREEXOSFXHJ6707-97-95 12:37:0012.0[facility] TxvyhhoSOLSQZEYUC5123-27-90 12:37:007.6[facility] AZEEBXNHBJ9571-28-32 12:37:000.7[facility] AexreaxGGLDGARKMX0412-79-07 12:37:001.4 [facility] MaenjpeJMHQWKAPLA9117-22-11 12:37:005.8[facility]annHEMATOLOGY 2011-09-12 12:37:000.1[facility] HtnjxmhSTJZHMGSFY4879-71-37 12:37:0018.9[facility] DcjgbvlMMRSKRXBHI8251-56-73 12:37:004.4[facility] UgitgjzSXBRRHLQFR3103-83-19 12:37:000.4[facility] TxbpzjhVLXPAVHAKK2211-36-09 12:37:0075.6[facility] YVXRGBGTFC2953-48-61 12:37:000.0[facility] RqiycwjRCGIYKQCLL7183-22-21 12:37:000.3 [facility] CejlbwyNERVUCOYXA6740-70-46 12:37:00Few /HPF *ABN*(09/12/2011 07:37:00) [facility] RuvnktnYZEJWJVUZW3443-82-12 12:37:00Few /LPF (09/12/2011 07:37:00) [facility] QntvmyyBCHLKIPSCY3715-84-09 12:37:00Occasional /LPF (09/12/2011 07:37:00) [facility] DcjlhkxNAHRTKYNHH8389-90-43 12:37:00Occasional /HPF (09/12/2011 07:37:00) [facility] DgdqnmxEXBNPBHNPE4447-30-78 12:37:000-2 /HPF (09/12/2011 07:37:00) [facility] CgyglnzFMFICOTCPL0382-17-88 12:37:000-2 /HPF (09/12/2011 07:37:00) [facility] TcjaeodXIBCKSECLN5061-07-48 12:37:00Performed (09/12/2011 07:37:00) [facility] CpyunnaKHARXJJGDC3400-03-98 12:37:00Negative (09/12/2011 07:37:00) [facility] FjqixwgUXMFBOMSWZ3720-44-26 12:37:001.0[facility] CimazjoDKVWMCSABF0043-65-15 12:37:00Negative (09/12/2011 07:37:00) [facility] MdiynstOIKQPAGBSL4746-96-68 12:37:00Negative (09/12/2011 07:37:00) [facility] CqkbomhNRUJOZOLSV7398-20-20 12:37:00Trace *ABN*(09/12/2011 07:37:00) [facility] LqyjskbYHFFQNTAQL4511-82-92 12:37:00* Test Item Value Reference Range Interpretation Comments UA pH (test code = UA pH) 8.5 1 5.0-8.0 [facility]9177-69-65 12:37:00* Test Item Value Reference Range Interpretation Comments UA Spec Grav (test code = UA Spec Grav) 1.025 1 N [facility] HrjscopOQZSLNRSUM3964-79-25 12:37:00Negative (09/12/2011 07:37:00) [facility]zyIFGGSZYCNE7920-25-52 12:37:00Negative *NA*(09/12/2011 07:37:00) [facility]tvnkaqWXFAFPAYIO4812-22-19 12:37:00>=80 mg/dL *ABN*(09/12/2011 07:37:00) [facility]WucjqdiSUCSQYJJYA1195-55-33 12:37:00Slight Cloudy (09/12/2011 07:37:00) [facility] CenterVgurhbfIDWWEKMDSJ8631-71-20 12:37:00Yellow *NA*(09/12/2011 07:37:00) [facility]
[2020-03-25] MEDS ORDERED: KETOROLAC TROMETHAMINE 30 MG/ML VIAL ONE (12:43)
[2020-03-25] MEDS ORDERED: SODIUM CHLORIDE 0.9% 1000ML 1,000 ML ONE (12:44)
--- NOTE | 2020-03-25 13:20 | Diagnostic Imaging Report ---
CT of the abdomen and pelvis, with contrast. History: Abdominal pain. Comparison: None available. Technique: Multidetector CT scanning of the abdomen and pelvis was performed from the level of the lung bases to the inferior pubic rami after intravenous administration of contrast. Coronal and sagittal multiplanar reformations were obtained. RADIATION DOSE: Total DLP: 768.07 mGy*cm Dose modulation, iterative reconstruction, and/or weight based adjustment of the mA/kV was utilized to reduce the radiation dose to as low as reasonably achievable. FINDINGS: The visualized intrathoracic contents are unremarkable. The liver is normal in attenuation without evidence for focal abnormality. The gallbladder appears contracted but otherwise unremarkable. There is no biliary ductal dilatation. The stomach, spleen, pancreas, and bilateral adrenal glands are unremarkable. The kidneys are normal in size and location enhance symmetrically. There is 8 mm hypodensity identified within the inferior pole the right kidney is too small to definitively characterize but likely represents a cyst. There is no evidence for nephrolithiasis or hydronephrosis. No ureteral stone or dilatation is appreciated. The partially distended urinary bladder demonstrates no significant abnormalities. Lobulated contour noted of the uterine fundus. The uterus and adnexa are otherwise grossly unremarkable. The abdominal aorta is normal in course and caliber. The IVC is unremarkable. Please note that evaluation of the bowel is limited without the use of enteric contrast material. The visualized loops of small and large bowel demonstrate no evidence of obstruction or inflammation. The appendix is visualized and appears unremarkable. There is no ascites or intraperitoneal free air. No abnormally enlarged lymph nodes are identified within the abdomen or pelvis. The osseous structures demonstrate no evidence for acute fracture or destructive process. The extraperineal soft tissues are unremarkable. IMPRESSION: No acute abdominopelvic process identified. Signed by: Dr. Loc Aldrich MD on 03/25/2020 1:16 PM
--- NOTE | 2020-03-25 13:45 | Emergency Department Note ---
History of Present Illnes History of Present Illness Chief Complaint: blq pain History of Present Illness This is a 29 year old female. was doing well prior to this. +VAGINAL DISCHARGE Historian: Patient Arrival Mode: Car History limited by: condition of the patient (normal) Onset (how long ago): day(s) (1) Location: see above Quality: sharp Radiation: Reports non-radiation Severity: severe Onset quality: gradual Duration (how long): day(s) (4) Timing of current episode: constant Progression: worsening Chronicity: new Context: Denies recent illness, Denies recent surgery, Denies recent immobilization, Denies recent travel, Denies trauma/injury, Denies new medications, Denies hx of DVT/PE, Denies non-compliance w/ medications Relieving factors: none Exacerbating factors: movement Associated symptoms: Reports denies other symptoms Treatments prior to arrival: none Past Medical/Family History Physician Review I have reviewed the patient's past medical and family history. Any updates have been documented here. Past Medical History Recent Fever: No Clinical Suspicion of Infectio: No New/Unexplained Change in Ment: No Past Medical History: None Past Surgical History: Other Surgery: ovarian cyst oopherectomy Social History Smoking Cessation: Never Smoker Counseling Performed: No Alcohol Use: Occasional Any Illegal Drug Use: No Physically hurt or threatened: No Other Last Tetanus: unknown Any Pre-Existing Lines (PICC,: No Review of Systems Review of Systems Constitutional: Reports no symptoms EENTM: Reports no symptoms Cardiovascular: Reports no symptoms Respiratory: Reports no symptoms Gastrointestinal: Reports as per HPI Genitourinary: Reports as per HPI Musculoskeletal: Reports no symptoms Integumentary: Reports no symptoms Neurological: Reports no symptoms Psychological: Reports no symptoms Endocrine: Reports no symptoms Hematological/Lymphatic: Reports no symptoms Review of other systems: All other systems negative Physical Exam Related Data Allergies: Coded Allergies: No Known Allergies (Unverified , 03/10/20) Triage Vital Signs Vital Signs Date Time Temp Pulse Resp B/P (MAP) Pulse Ox O2 Delivery O2 Flow Rate FiO2 03/25/20 11:00 98.9 89 18 139/85 100 Room Air Vital signs reviewed: Yes Physical Exam CONSTITUTIONAL Constitutional: Present well-developed, Present well-nourished HENT HENT: Present normocephalic, Present atraumatic, Present oropharynx clear/moist, Present nose normal HENT L/R: Present left ext ear normal, Present right ext ear normal EYES Eyes: Reports PERRL, Reports conjunctivae normal NECK Neck: Present ROM normal, Present supple PULMONARY Pulmonary: Present effort normal, Present breath sounds normal CARDIOVASCULAR Cardiovascular: Present regular rhythm, Present heart sounds normal, Present capillary refill normal, Present normal rate GASTROINTESTINAL Abdominal: Present soft, Present bowel sounds normal, Present tender (blq), Present guarding; Absent mass, Absent rebound GENITOURINARY Genitourinary: Present exam deferred SKIN Skin: Present warm, Present dry MUSCULOSKELETAL Musculoskeletal: Present ROM normal NEUROLOGICAL Neurological: Present alert, Present oriented x 3, Present no gross motor or sensory deficits PSYCHOLOGICAL Psychological: Present mood/affect normal, Present judgement normal Results Laboratory Lab results reviewed: Yes Laboratory comments cbc/bmp/lft/ua /u hcgall normal Imaging Imaging results reviewed: Yes Impressions [place] [address] Patient Name: REYNALDO ARIZA MR #: [id number] : 1990 Age/Sex: 29/F Req #: [id number] Adm Physician: Ordered by: PETRA WHIPPLE Report #: [id number] Location: [facility] Room/Bed: Procedure: [id number] HOPD/CT ABD/PEL WITH CONTRAST-HOPD Exam Date: 03/25/20 Exam Time: 1301 REPORT STATUS: Signed CT of the abdomen and pelvis, with contrast. History: Abdominal pain. Comparison: None available. Technique: Multidetector CT scanning of the abdomen and pelvis was performed from the level of the lung bases to the inferior pubic rami after intravenous administration of contrast. Coronal and sagittal multiplanar reformations were obtained. RADIATION DOSE: Total DLP: 768.07 mGy*cm Dose modulation, iterative reconstruction, and/or weight based adjustment of the mA/kV was utilized to reduce the radiation dose to as low as reasonably achievable. FINDINGS: The visualized intrathoracic contents are unremarkable. The liver is normal in attenuation without evidence for focal abnormality. The gallbladder appears contracted but otherwise unremarkable. There is no biliary ductal dilatation. The stomach, spleen, pancreas, and bilateral adrenal glands are unremarkable. The kidneys are normal in size and location enhance symmetrically. There is 8 mm hypodensity identified within the inferior pole the right kidney is too small to definitively characterize but likely represents a cyst. There is no evidence for nephrolithiasis or hydronephrosis. No ureteral stone or dilatation is appreciated. The partially distended urinary bladder demonstrates no significant abnormalities. Lobulated contour noted of the uterine fundus. The uterus and adnexa are otherwise grossly unremarkable. The abdominal aorta is normal in course and caliber. The IVC is unremarkable. Please note that evaluation of the bowel is limited without the use of enteric contrast material. The visualized loops of small and large bowel demonstrate no evidence of obstruction or inflammation. The appendix is visualized and appears unremarkable. There is no ascites or intraperitoneal free air. No abnormally enlarged lymph nodes are identified within the abdomen or pelvis. The osseous structures demonstrate no evidence for acute fracture or destructive process. The extraperineal soft tissues are unremarkable. IMPRESSION: No acute abdominopelvic process identified. Signed by: Dr. 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,UTI Assessment & Plan Final Impression: (1) Acute abdominal pain (2) Vaginal discharge Depart Disposition: HOME, SELF-CARE Last Vital Signs Date Time Temp Pulse Resp B/P (MAP) Pulse Ox O2 Delivery O2 Flow Rate FiO2 03/25/20 11:00 98.9 89 18 139/85 100 Room Air Home Meds Active Scripts Prednisone (PREDNISONE) 20 Mg Tab, 60 MG PO DAILY PRN for MODERATE PAIN (4-6), #15 TAB TAKE ALL 3 20 MG PILLS AT ONCE Prov:PETRA WHIPPLE 03/25/20 Metronidazole (METRONIDAZOLE) 500 Mg Tablet, 500 MG PO Q8H, #30 TAB TAKE WITH JUICE AND FOOD Prov:PETRA WHIPPLE 03/25/20 Doxycycline Hyclate (DOXYCYCLINE HYCLATE) 100 Mg Tablet, 100 MG PO Q12H, #20 TAB Prov:PETRA WHIPPLE 03/25/20 Dexamethasone (Decadron) 6 Mg Tablet, 1 TAB PO DAILY for 10 Days, #10 TAB 0 Refills Take with food, in the morning. Prov:ANGELICA RODRIGUEZ MD 03/10/20 Azithromycin (ZITHROMAX) 250 Mg Tablet, 2 TAB PO today for infection for 5 Days, #6 TAB 0 Refills 2 po today, then 1 po daily x 4 days. Complete 5 day course, for infection. Prov:ANGELICA RODRIGUEZ MD 03/10/20 Medications in the ED Sodium Chloride 10 ml PRN PRN INJ IV SITE FLUSH; Start 03/25/20 at 11:15; Stop 04/24/20 at 11:14 Ketorolac Tromethamine 30 mg ONCE STAT IV Last administered on 03/25/20at 12:35; Admin Dose 30 MG; Start 03/25/20 at 11:13; Stop 03/25/20 at 11:18; Status DC Sodium Chloride 1,000 ml @ 1,000 mls/hr Q1H STAT IV Last administered on 03/25/20at 12:35; Admin Dose 1,000 MLS/HR; Start 03/25/20 at 11:13; Stop at 12:12; Status DC Ketorolac Tromethamine 30 mg STK-MED ONCE .ROUTE ; Start 03/25/20 at 12:43; Stop 03/25/20 at 12:40; Status DC Sodium Chloride 1,000 ml @ ud STK-MED ONCE .ROUTE ; Start 03/25/20 at 12:44; Stop 03/25/20 at 12:40; Status DC PETRA WHIPPLE Mar 25, 2020 13:45
[2020-03-25] MEDS ORDERED: DOXYCYCLINE HY100 M3 PO (14:14)
[2020-03-25] MEDS ORDERED: METRONIDAZOLE500 MG PO (14:14)
[2020-03-25] MEDS ORDERED: PREDNISONE20 MG PO (14:14)
[2020-03-25] MEDS ORDERED: CEFTRIAXONE SOD 1 GM/NS 50 ML 50 ML IV ONE ×2 (14:15→14:32)
[2020-03-25] MEDS ORDERED: METHYLPREDNISOLONE SOD SUCC 125 MG/2ML VIAL IV ONE (14:15)
[2020-03-25] MEDS ORDERED: AZITHROMYCIN 250 MG TAB PO ONE (14:15)
[2020-03-25] MEDS ORDERED: METHYLPREDNISOLONE SOD SUCC 125 MG/2ML VIAL ONE (14:32)
[2020-03-25] MEDS ORDERED: AZITHROMYCIN 250 MG TAB ONE (14:32)
[2020-03-25 14:39] VITALS: BP 127/75
[2020-03-25] MEDS ORDERED: SODIUM CHLORIDE 0.9% 50ML 50 ML ONE (17:09)
[2020-03-25] MEDS ORDERED: IOPAMIDOL 370 MG/ML 200 ML INFUS..BTL INJ ONE (17:09)
== END 2020-03-25 14:36 | disposition home or self-care (01) ==
LOC: FSED 10:59
DX: R10.32 Left lower quadrant pain (principal); N89.8 Other specified noninflammatory disorders of vagina
CPT/HCPCS: 74177; 80048; 80076; 81003; 81025; 85025; 96374; 96375; 99284; J0696; J1885; J2930; J7030; Q9967

== ENCOUNTER 2021-08-24 13:05 | Emergency (ER) | payer OTHER ==
[~2021-08-24] VITALS: Ht 165.1 cm; Wt 87.5 kg
[~2021-08-24 13:05] MED LIST changes: +DOXYCYCLINE HY100 M3 PO; +METRONIDAZOLE500 MG PO; +PREDNISONE20 MG PO
[2021-08-24] MEDS ORDERED: SODIUM CHLORIDE 0.9% 1000ML 1,000 ML IV ONE ×2 (13:45→14:45)
[2021-08-24] MEDS ORDERED: ONDANSETRON HCL INJ 2MG/ML 2ML 2 MG/ML VIAL IV STA (13:45)
[2021-08-24] MEDS ORDERED: LORATADINE10 MG PO (14:23)
[2021-08-24] MEDS ORDERED: BUSPIRONE HCL10 MG PO (14:23)
[2021-08-24] MEDS ORDERED: KETOROLAC TROMETHAMINE 30 MG/ML VIAL IV STA (14:39)
[2021-08-24] MEDS ORDERED: ONDANSETRON HCL INJ 2MG/ML 2ML 2 MG/ML VIAL ONE (15:10)
[2021-08-24] MEDS ORDERED: KETOROLAC TROMETHAMINE 30 MG/ML VIAL ONE (15:10)
[2021-08-24] MEDS ORDERED: SODIUM CHLORIDE 0.9% 1000ML 1,000 ML ONE (15:10)
== END 2021-08-24 16:27 | disposition home or self-care (01) ==
LOC: FSED 13:38
DX: R55 Syncope and collapse (principal); E86.0 Dehydration; J10.1 Influenza due to other identified influenza virus with other respiratory manifestations
CPT/HCPCS: 70450; 80048; 81003; 81025; 82553; 84484; 85025; 87400; 96374; 96375; 99284; J1885; J2405; J7030